=== PATIENT | female | born 1995 | race Caucasian/White ===

== ENCOUNTER 2016-12-08 01:33 | Emergency (ER) | payer BC ==
[~2016-12-08] VITALS: Ht 165.1 cm; Wt 72.8 kg
[~2016-12-08 01:33] MED LIST: BCPILLS PO
[2016-12-08 01:37] VITALS: BP 151/99; PULSE 104; TEMP 36.6; O2SAT 100; Ht 165.1 cm; Wt 72.8 kg
[2016-12-08] MEDS ORDERED: AMOXICILLIN 250 MG CAP PO STA (01:48)
[2016-12-08] MEDS ORDERED: TRAMADOL HCL 50 MG TAB PO STA (01:48)
[2016-12-08] MEDS ORDERED: AMOX500C3 PO (01:57)
[2016-12-08] MEDS ORDERED: TRAM-10 PO (01:57)
--- NOTE | 2016-12-08 02:00 | EMERGENCY ROOM VISIT NOTE ---
History First contact with patient: 01:42 Chief Complaint: DENTAL PAIN Stated Complaint: TOOTH, JAW PAIN Nursing Triage Summary: left sided dental pain/jaw pain History of Present Illness The patient is a 21 year old female who presents to the Emergency Room with complaints of dental pain for the past few days who has cavities and has not scheduled an appointment yet to have them fixed. She saw the dentist last week. She ent pain as aching, ranging in severity 6 out of 10 to the left upper jaw line. She tried Motrin without relief of symptoms. Patient denies chest pain, dyspnea, fever, chills, facial pain, dysphagia, neck pain, neck status, lightheadedness or dizziness. No other complaints per patient. Review of Systems See HPI for pertinent positives & negatives. A total of 10 systems reviewed and were otherwise negative. Past Medical/Surgical History None Social History Smoking Status: Never Smoker Drug Use: none Marital Status: in relationship Current/Historical Medications Scheduled Amoxicillin (Amoxil), 500 MG PO TID Control Pills ( Control Pills), 1 TAB PO DAILY Scheduled PRN Tramadol (Ultram), 1-2 TAB PO Q4H PRN for Pain Allergies Coded Allergies: No Known Allergies (Unverified Allergy, Mild, 09/27/06) Physical Exam Vital Signs Date Time Temp Pulse Resp B/P Pulse Ox O2 Delivery O2 Flow Rate FiO2 12/08/16 01:37 36.6 104 18 151/99 100 Room Air Physical Exam VITALS: Vitals are noted on the nurse's note and reviewed by myself. Vital signs stable. GENERAL: Pleasant female, in no acute distress, nondiaphoretic, well-developed well-nourished. SKIN: The skin was without rashes, erythema, edema, or bruising. There is no tenting of the skin. Capillary reflex less than 2 seconds. HEAD: Normocephalic atraumatic. EARS: External auditory canals clear, tympanic membranes pearly limon without erythema or effusion bilaterally. EYES: Pupils equal round and reactive to light and accommodation. Conjunctivae without injection, sclerae without icterus. Extraocular movements intact. NOSE: Patent, turbinates without inflammation or discharge. No sinus tenderness. MOUTH: Mucous membranes moist. Pharynx without erythema or exudate. Uvula midline. Airway patent. Tongue does not deviate. Dental exam: No loose or chipped teeth, dental decay to left upper molar with no palpable abscess. No signs of Mike angina. NECK: Supple without nuchal rigidity. No lymphadenopathy. No thyromegaly. Cervical spine is nontender. No JVD. No meningeal signs HEART: Regular rate and rhythm without murmurs gallops or rubs. LUNGS: Clear to auscultation bilaterally without wheezes, rales or rhonchi. No dullness to percussion. No retractions or accessory muscle use. ABDOMEN: Positive bowel sounds x 4. Normal tympanic percussion. Soft, nontender, without masses or organomegaly. Spann sign negative. No guarding or rebound tenderness. MUSCULOSKELETAL: No muscle atrophy, erythema, or edema noted. NEURO: Patient was alert and oriented to person place and time. Normal sensation to light and sharp touch. No focal neurological deficits. Medical Decision & Procedures Medications Administered Medications (Trade) Dose Ordered Sig/Tracy Route Start Time Stop Time Status Last Admin Dose Admin Amoxicillin (Amoxil Cap) 500 mg NOW STAT PO 12/08/16 01:48 12/08/16 01:49 DC 12/08/16 01:53 500 MG Tramadol HCl (Ultram Tab) 50 mg ONE STAT PO 12/08/16 01:48 12/08/16 01:49 DC 12/08/16 01:53 50 MG ED Course Prior records reviewed and summarized as above. Triage Nursing notes reviewed. Additional history obtained from boyfriend. The patient's history was concerning for dental pain. Differential diagnosis: Etiologies such as cellulitis, abscess, gingivitis, cavity, Mike angina as well as others were entertained.. Physical examination: The physical examination was consistent with dental pain from dental cavity ER treatment provided: Amoxicillin, Ultram On reassessment the patient felt better. Diagnostics interpreted by me: Deferred This appears to be isolated dental pain and dental caries. Patient had no palpable abscess. No signs of airway compromise. No signs of Mike angina. She was counseled on Proper Dental Hygiene and Advised to See a Dentist As Soon As Possible for Definitive Care for Her Dental Problem or Here in the ER Sooner for Fevers, Facial Swelling, Difficulty Swallowing, Worsening Signs or Symptoms or As Needed.. By the evaluation outlined above emergent etiologies such as abscess, Mike angina, as well as others were deemed relatively unlikely. The pt informed about the findings as listed above. All questions were answered and pleased with the treatment. Return instructions were outlined and the patient was discharged in stable condition. Outpatient prescription management: amoxil, ultram Referral: The patient was referred back to dentistry for follow-up in 2 to 3 days for a recheck of the current condition. Medical Decision As above [place] Drug Monitoring Program Search Results: patient reviewed within database, no issues identified Impression Primary Impression: Dental caries Additional Impression: Tooth pain with chewing Departure Information Dispostion Home / Self-Care Condition GOOD Prescriptions Tramadol (Ultram) 50 Mg Tab 1-2 TAB PO Q4H Y for Pain, #14 TAB For Initial Treatment Prov: Dinah Obando .SOHAIL 12/08/16 Amoxicillin (AMOXIL) 500 Mg Cap 500 MG PO TID for 10 Days, #30 CAP Prov: Dinah Obando PA-C 12/08/16 Referrals No Doctor, Assigned (PCP) Forms HOME CARE DOCUMENTATION FORM, IMPORTANT VISIT INFORMATION Patient Instructions [facility], ED [facility] Additional Instructions Amoxicillin 500mg: Take one pill 3 times daily for 10 days for your infection. All antibiotics can cause diarrhea. If this occurs and you feel worse or it does not resolve in 1-2 days follow up with your doctor or return to the Emergency Department as this could be signs of serious underlying problems. Any medication can cause an allergic reaction, stop the pills immediately and return to the ER for rash, hives, breathing difficulties, or swelling. Ultram 50 mg: Take 1-2 pills every four hours for breakthrough pain. Avoid alcohol, operating machinery or dangerous equipment, working on ladders or roofs , DRIVING, or situations where being under the influence may be dangerous. It is recommended to use an wpnd-bns-pbkhxzz stool softener such as Colace, 100mg twice daily while taking this medication to avoid constipation. Ibuprofen(Motrin, Advil) may be used for fever or pain. Use 600mg every six hours as needed. Take with food. Avoid using more than 2400mg in a 24 hour period. Do not use 2400mg per day for more than three consecutive days without physician direction. Prolonged inappropriate use can lead to stomach upset or ulcers. This medication can be taken if you need to drive, work, or perform activities which may be dangerous when taking narcotic pain medication. (AND/OR) Acetaminophen(Tylenol) may be used for fever or pain. Use 1000mg every six hours as needed. Avoid using more than 3000mg in a 24 hour period. This medication can be taken if you need to drive, work, or perform activities which may be dangerous when taking narcotic pain medication. [place] teeth twice a day, floss daily and do warm saltwater gargles 3 times a day. See a dentist as soon as possible for definitive care for your dental problem. Return to ER sooner for facial swelling, fever, redness, worsening signs or symptoms or as needed. Problem Qualifiers
== END 2016-12-08 02:07 | disposition home or self-care (01) ==
LOC: C.EDB 01:34
DX: K02.9 Dental caries, unspecified (principal); K08.89 Other specified disorders of teeth and supporting structures

== ENCOUNTER 2020-11-20 05:32 | Inpatient (IN) ==
[2020-11-20] MEDS ORDERED: CITRIC ACID/SODIUM CITRATE 15 ML UDC PO SCH (06:00)
[2020-11-20] MEDS ORDERED: LACTATED RINGER'S 1,000 ML IV SCH ×2 (06:00→08:45)
[2020-11-20] MEDS ORDERED: ceFAZolin 2,000 MG in SYRINGE 0 ML IV SCH (06:00)
[2020-11-20 06:45] LABS: Hematocrit (blood only) 34.9 % (37-47); Hemoglobin 11.9 g/dL (12.0-16.0); Mean Corpuscular Hemoglobin 31.2 pg (25-34); Mean Corpuscular Hgb Conc 34.1 g/dL (32-36); Mean Corpuscular Volume 91.4 fL (80-100); RDW Coefficient of Variation 13.2 % (11.5-14.5); RDW Standard Deviation 43.4 fL (36.4-46.3); Red Blood Count 3.82 M/uL (4.2-5.4); White Blood Count 7.79 K/uL (4.8-10.8)
--- NOTE | 2020-11-20 06:59 | Anesthesiology Consultation ---
Date of Service November 20, 2020 Assessment & Plan (1) Encounter for pre-operative examination: Chart Review Chart Review: Acceptable Risk for Surgery Consults Requested none ASA ASA2 Proposed Anesthesia Anesthesia Type: Spinal Risk / Benefits Reviewed With: PT / POA / Parent / Guardian, Accepts Plan and Informed Consent Obtained History Surgery Operation Date: 11/20/20 07:30 Proposed Procedures p Section - Lorenzo Pak MD Height/Weight Height: 5 ft 4 in Weight: 76.204 kg Allergies Allergy/AdvReac Type Severity Reaction Status Date / Time No Known Allergies Allergy Mild Verified 11/17/20 09:11 Medications Home Medications Medication Instructions Recorded Confirmed Last Taken prenat.vits,jason,ahk-kvta-xxriv 1 tab PO DAILY 04/10/20 11/20/20 11/19/20 08:00 Past Medical History Medical History Need for rhogam due to Rh negative mother Spontaneous hx Exercise / Class Metabolic Activity II 4-5 Yardwork/Stairs/Walk up hill Past Family History Family History Grandmother (Paternal) Breast cancer Diabetes Brother Cancer lymphoma Grandmother (Maternal) Heart disease Father Hypertension Past Surgical History Surgical History History of wisdom tooth extraction Status post surgery Hymenectomy 2007? Past Anesthesia History No Hx of Anesthesia Complications and No Family Hx of Anesthesia Complications History of PONV No Hx of PONV and No Hx of Motion Sickness Social History Smoking Status: Never smoker Do You Dip or Chew Tobacco: No Hx Alcohol Use: No Hx Substance Use: No substance use type: does not use Physical Exam Vital Signs Last Vital Signs Temp 98.1 F 11/20/20 05:44 Pulse 88 11/20/20 05:44 Resp 20 11/20/20 05:44 BP 136/85 11/20/20 05:44 ENMT Mouth: no dentition abnormality Thyromental Distance: > or= 3.5 Finger Breadths Mallampati Class: II Neck normal visual inspection Respiratory normal respiratory effort Auscultation: lungs clear to auscultation bilaterally Cardiovascular Rate/Rhythm: regular rate and regular rhythm Testing Laboratory Results 11/20/20 06:14
[2020-11-20] MEDS ORDERED: fentaNYL citrate 100 MCG/2 ML VIAL ONE (07:02)
[2020-11-20] MEDS ORDERED: MoRPHine SULFATE PF 1 MG/ML 10 ML AMP/VIAL ONE (07:02)
[2020-11-20] MEDS ORDERED: OXYTOCIN 10 UNITS/ML VIAL ONE ×2 (07:02→08:09)
[2020-11-20 07:04] LABS: Basophils # (auto) 0.02 K/uL (0-0.2); Basophils % (auto) 0.3 %; Eosinophils # (auto) 0.04 K/uL (0-0.5); Eosinophils % (auto) 0.5 %; Immature Granulocytes # (auto) 0.07 K/uL (0.00-0.02); Immature Granulocytes % (auto) 0.9 %; Lymphocytes # (auto) 1.59 K/uL (1.2-3.4); Lymphocytes % (auto) 20.4 %; Monocytes # (auto) 0.59 K/uL (0.11-0.59); Monocytes % (auto) 7.6 %; Neutrophils # (auto) 5.48 K/uL (1.4-6.5); Neutrophils % (auto) 70.3 %; Platelet Count 119 K/uL (130-400); Platelet Estimate Decreased (Normal)
--- NOTE | 2020-11-20 07:17 | History & Physical Report ---
Date of Service November 20, 2020 Assessment & Plan (1) Encounter for pre-operative examination: 25yo at 39.4 weeks GA. LTCS for persistent breech. Declining ECV. 1. Fetus: Cat 1 2. Delivery planned by LTCS 3. Vitals: WNL 4. Rh negative: Rh protocol post (2) Need for rhogam due to Rh negative mother: (3) Breech presentation: Admission and Anticipated Discharge Date Admission Date: November 20, 2020 History of Present Illness Primary Care Provider: NO PCP 25yo at 39.4 weeks GA. Presents for scheduled LTCS for persistent breech presentation. otherwise complicated by Rh negative. OB Labs: Blood Type A Negative 04/18/20 Antibody Screen NEGATIVE 04/18/20 Hemoglobin 12.8 g/dL (12.0-16.0) 04/18/20 Hematocrit 36.3 % (37-47) L 04/18/20 Mean Corpuscular Volume 86.8 fL (80-100) 04/18/20 Platelet Count 204 K/uL (130-400) 04/18/20 Rubella IgG Antibody Immune (Immune) 04/18/20 Rapid Plasma Reagin Nonreactive (Nonreactive) 04/18/20 Hepatitis B Surface Antigen Neg (Neg) 04/18/20 HIV (1&2) Ab and P24 Ag, 4th Gener Neg (Neg) 04/18/20 Glucose 1 Hour 50 gm Load 75 mg/dl (70-130) 06/14/20 OB Optional Labs: Chlamydia trachomatis RNA NOT DETECTED (NOT DETECTED) 04/18/20 Neisseria gonorrhoeae RNA NOT DETECTED (NOT DETECTED) 04/18/20 Allergies Allergy/AdvReac Type Severity Reaction Status Date / Time No Known Allergies Allergy Mild Verified 11/17/20 09:11 Home Medications Medication Instructions Recorded Confirmed Type prenat.vits,jason,sxn-irib-osrtr 1 tab PO DAILY 04/10/20 11/20/20 History Patient History Medical History Need for rhogam due to Rh negative mother Spontaneous hx Surgical History History of wisdom tooth extraction Status post surgery Hymenectomy 2007? Family History Grandmother (Paternal) Breast cancer Diabetes Brother Cancer lymphoma Grandmother (Maternal) Heart disease Father Hypertension Social History Smoking Status: Never smoker Second Hand Exposure: No; Do You Dip or Chew Tobacco: No; Tobacco Cessation Education Requested by Patient: No Hx Alcohol Use: No Hx Substance Use: No Preferred Language: Bermudian Communication Ability: Effective Mix House Operator Required: No Beliefs That Will Affect Care: None marital status: marital status details: Av Zamora (25) [phone] Current Living Situation: Spouse Current Living Situation Comment: lives with spouse, 2 dogs current occupational status: employed current occupation: [employer] Other Information That Helps Us Care for You: No Feels Safe at Home: Yes Safety Concerns: Feels Safe At This Time Assistive Devices: Contacts and Glasses Physical Exam Constitutional: WD/WN, vitals as above Respiratory: normal respiratory effort, lungs clear to auscultation Cardiovascular: RRR, no murmur, no edema Gastrointestinal (Abdomen): Inspection/Auscultation: abdomen normal to inspection Percussion/Palpation: abdomen soft; abdomen nontender, no guarding and abdomen not rigid Genitourinary: OB Exam Abdomen: + breech (by BSUS) Results & Data ([facility]) Vital Signs (Past 12 Hours) Vital Signs Temp Pulse Resp BP 11/20/20 07:03 36.9 C 89 16 140/97 11/20/20 06:59 89 140/97 11/20/20 05:44 36.7 C 88 20 136/85 Coding Level of Care Code None Diagnoses Encounter for pre-operative examination Z01.818 Need for rhogam due to Rh negative mother Z29.13 Breech presentation O32.1XX0
[2020-11-20] MEDS ORDERED: ONDANSETRON INJ 2 MG/ML 2 ML VIAL ONE (07:34)
[2020-11-20] MEDS ORDERED: NALOXONE HCL 1 MG in SODIUM CHLORIDE 0.9% 1000ML 1,000 ML IV PRN (07:46)
[2020-11-20] MEDS ORDERED: diphenhydrAMINE 50 MG/ML VIAL IV PRN (07:46)
[2020-11-20] MEDS ORDERED: NALOXONE HCL 0.08 MG in SYRINGE 1.8 ML IV PRN (07:46)
[2020-11-20] MEDS ORDERED: ePHEDrine sulfate 50 MG/ML AMP IV PRN (07:46)
[2020-11-20] MEDS ORDERED: MEPERIDINE HCL 25 MG/ML CARP/VIAL IV PRN (07:46)
[2020-11-20] MEDS ORDERED: LACTATED RINGER'S 500 ML IV PRN (07:46)
[2020-11-20] MEDS ORDERED: ONDANSETRON INJ 2 MG/ML 2 ML VIAL IV PRN (07:46)
[2020-11-20] MEDS ORDERED: NALOXONE HCL 0.4 MG/1 ML VIAL/CARP IV PRN (07:46)
[2020-11-20] MEDS ORDERED: MoRPHine SULFATE PF 1 MG/ML 10 ML AMP/VIAL INT SPINAL ONE (07:46)
[2020-11-20] MEDS ORDERED: SODIUM CHLORIDE 0.9% 1000ML 1,000 ML IV SCH (08:00)
[2020-11-20] MEDS ORDERED: NO NARCOTICS OR SEDATIVES SCH (08:00)
--- NOTE | 2020-11-20 08:35 | Post Operative Brief Note ---
PG Immediate Post Op with CF Date of Surgery November 20, 2020 Pre & Post Diagnosis Operation Date: 11/20/20 07:30 Pre-Op Diagnosis: Breech Presentation Post-Op Diagnosis: Same; Delivery of a live male child at 0755 I identified the patient and participated in the time-out.: Yes Procedure Operation Date: 11/20/20 07:30 Actual Procedures p Section - Lorenzo Pak MD Surgeon Lorenzo Pak MD Nursing Teacher Dr Larsen Estimated Blood Loss 600 Findings Consistent with Post-Op Diagnosis Specimens Specimen Description: A. Placenta-hold B. Cord Blood Drains [place] Catheter
[2020-11-20] MEDS ORDERED: DIPHTHERIA/TETANUS/PERTUSSIS 0.5 ML SYR/VIAL IM ONE (08:36)
[2020-11-20] MEDS ORDERED: HYDROCORTISONE ACETATE 25 MG SUPP PR PRN (08:36)
[2020-11-20] MEDS ORDERED: SUPERCREAM 0.870% 15 GM JAR EXT PRN (08:36)
[2020-11-20] MEDS ORDERED: MAGNESIUM HYDROXIDE SUSP 30 ML UDC PO PRN (08:36)
[2020-11-20] MEDS ORDERED: SENNA 8.6 MG TAB PO PRN (08:36)
[2020-11-20] MEDS ORDERED: BENZOCAINE 20% AER SPR 82.5 GM CAN EXT PRN (08:36)
--- NOTE | 2020-11-20 09:35 | Anesthesiology Progress Note ---
Date of Service November 20, 2020 Anesthesia Post Procedure Vital Signs Vital Signs: Temp Pulse Resp BP Pulse Ox 11/20/20 09:33 67 97 11/20/20 09:31 62 113/74 11/20/20 09:28 66 98 11/20/20 09:23 72 98 11/20/20 09:21 65 115/71 11/20/20 09:18 70 98 11/20/20 09:13 62 98 11/20/20 09:11 70 109/64 11/20/20 09:08 66 97 11/20/20 09:03 65 97 11/20/20 09:01 72 113/61 11/20/20 08:58 70 98 11/20/20 08:53 68 98 11/20/20 08:52 70 116/66 11/20/20 08:48 73 97 11/20/20 08:44 65 113/65 11/20/20 08:43 64 97 11/20/20 07:03 98.4 F 89 16 140/97 11/20/20 06:59 89 140/97 11/20/20 05:44 98.1 F 88 20 136/85 Transfer of Care Handoff Completed per policy Notes Mental Status: alert / awake / arousable and participated in evaluation Nausea / Vomiting: adequately controlled Pain: adequately controlled Airway Patency, RR, SpO2: stable & adequate BP & HR: stable & adequate Hydration State: stable & adequate Neuraxial Anesthesia: was administered and sensory block is resolving Anesthetic Complications: no major complications apparent and Pt Satisfied with anesthetic care
--- NOTE | 2020-11-20 10:22 | Operative Report (OR) ---
DATE OF OPERATION: 11/20/2020 PROCEDURE: Primary low transverse section. SURGEON: Lorenzo Pak MD. STAVE LOG RIPSAW OPERATOR: Paige Larsen MD. PREOPERATIVE DIAGNOSES: 1. Single intrauterine at 39 weeks 4 days gestational age. 2. Persistent breech presentation. 3. Rh negative. POSTOPERATIVE DIAGNOSES: 1. Single intrauterine at 39 weeks 4 days gestational age. 2. Persistent breech presentation. 3. Rh negative. 4. Status post procedure. ESTIMATED BLOOD LOSS: 600 mL DRAINS: [place] catheter. FLUIDS: Continuous lactated ringer. URINE OUTPUT: Via [place] catheter. COMPLICATIONS: None. FINDINGS: Viable with weight and Apgars pending. INDICATIONS: The patient is a 25-year-old G1, P0, at 39 weeks 4 days gestational age, presented today for scheduled primary section secondary to persistent breech presentation. The patient has been previously counseled on options for persistent breech including an external cephalic version versus a primary section. The patient declined. The external cephalic version and opted to proceed with a primary . Consents were reviewed and signed in clinic last week. DESCRIPTION OF PROCEDURE: The patient was taken to the operating room after consents were ensured. Upon presentation, she was properly identified. Spinal anesthesia was obtained without difficulty. The patient was prepped and draped in normal sterile fashion. A preprocedural timeout was performed. A Pfannenstiel incision was then made with a knife. This was carried down to underlying fascia with the Bovie. The fascia was nicked at the midline with a knife and was extended laterally in each direction with Mayos and pickups. The superior aspect of the fascia was then grasped with Kochers x2 and elevated off the underlying rectus muscle using blunt dissection and the inferior aspect of the fascia was grasped with Kochers x2, elevated off the underlying rectus muscles using blunt dissection. A midline was then entered bluntly and placed on stretch to provide adequate room for delivery. A bladder blade was inserted and a bladder flap was created in normal fashion. A low transverse uterine incision was then made with a knife. The was noted to be in elma breech presentation and was delivered through the hysterotomy without difficulty. The was noted to be vigorous upon delivery and the cord was double clamped and cut. was delivered and taken to the awaiting nursery staff and segment cord blood were obtained. Attention was then turned to deliver the placenta, which delivered intact, 3-vessel cord, gentle cord traction. The uterus was then exteriorized and several passes were made, was wrapped in a wet lap and several passes were made to remove any remaining membranes with a dry lap. The hysterotomy was then reapproximated with 0 Vicryl in a continuous running locked stitch. A second imbricating layer was then performed. The posterior cul-de-sac was cleaned of clots and debris. The uterus was returned to the maternal abdomen. Right and left pericolic gutters were cleaned of clots and debris. On inspection of the hysterotomy there was noted to be a couple small areas of bleeding and [id number] stitch was used x2 to achieve hemostasis. The space of Retzius subcutaneous and muscle layers were all inspected and noted to be hemostatic. The fascia was reapproximated with 0 Vicryl in a continuous running stitch. The subcutaneous layer was reapproximated with a 2-0 plain in continuous running stitch with care to reapproximate the Yael's fascia. The skin was reapproximated with 3-0 Vicryl on a Aubrey needle. Dermabond was placed on top. Needle, sponge and instrument counts were correct at the completion of the case. Both mother and were stable in the immediate post-delivery period. I attest to the content of the Intraoperative Record and any orders documented therein. Any exceptions are noted below. AMAIRANID
[2020-11-20] MEDS: KETOROLAC 30 MG/ML VIAL IV PRN ×2 (10:43→18:39)
[2020-11-20] MEDS: OXYTOCIN 20 UNITS in LACTATED RINGER'S 1,000 ML IV SCH ×2 (10:48→15:38)
[2020-11-20] MEDS: SIMETHICONE 80 MG CHEW PO SCH ×3 (17:24→20:48)
[2020-11-20] MEDS: DOCUSATE SODIUM 100 MG CAP PO SCH (20:48)
[2020-11-21] MEDS: KETOROLAC 30 MG/ML VIAL IV PRN (01:27)
[2020-11-21] MEDS ORDERED: DC INTRASPINAL MORPHINE ONE (01:46)
[2020-11-21] MEDS ORDERED: PROMETHAZINE HCL 25 MG in SODIUM CHLORIDE 0.9% 50 ML IV PRN (01:47)
[2020-11-21] MEDS ORDERED: ONDANSETRON INJ 2 MG/ML 2 ML VIAL IV PRN (01:47)
[2020-11-21] MEDS ORDERED: KETOROLAC 30 MG/ML VIAL IV PRN (01:47)
[2020-11-21] MEDS ORDERED: diphenhydrAMINE Capsule 25 MG CAP PO PRN (01:47)
[2020-11-21] MEDS ORDERED: diphenhydrAMINE 50 MG/ML VIAL IV PRN (01:47)
[2020-11-21] MEDS: oxyCODONE/ACETAMINOPHEN 5mg/325mg TAB PO PRN ×4 (06:07→20:37)
[2020-11-21 06:47] LABS: Basophils # (auto) 0.02 K/uL (0-0.2); Basophils % (auto) 0.2 %; Eosinophils # (auto) 0.04 K/uL (0-0.5); Eosinophils % (auto) 0.4 %; Hematocrit (blood only) 31.9 % (37-47); Immature Granulocytes # (auto) 0.03 K/uL (0.00-0.02); Immature Granulocytes % (auto) 0.3 %; Lymphocytes % (auto) 13.9 %; Mean Corpuscular Hemoglobin 31.4 pg (25-34); Mean Corpuscular Hgb Conc 34.5 g/dL (32-36); Mean Corpuscular Volume 91.1 fL (80-100); Mean Platelet Volume 11.9 fL (7.4-10.4); Monocytes # (auto) 0.43 K/uL (0.11-0.59); Monocytes % (auto) 4.3 %; Neutrophils # (auto) 8.13 K/uL (1.4-6.5); Neutrophils % (auto) 80.9 %; Platelet Count 113 K/uL (130-400); RDW Coefficient of Variation 13.3 % (11.5-14.5); RDW Standard Deviation 43.6 fL (36.4-46.3); White Blood Count 10.05 K/uL (4.8-10.8)
--- NOTE | 2020-11-21 07:00 | Obstetrical Progress Note ---
Date of Service <William Giordano MD - Last Filed: 11/21/20 07:35> November 21, 2020 Assessment & Plan <William Giordano MD - Last Filed: 11/21/20 07:35> (1) : A/P: Arelis Zamora is a 25 y/o female on POD#1 s/p delivery at 39+4 weeks. * Patient feels well today; eating well, voiding well, ambulating well * Pain well-controlled with oxycodone/acetaminophen 2 tabs q4h prn * PNL: Rh neg, RI, GBS neg, COVID neg * Baby is Rh neg - further rhogam not indicated * Routine postcesarean care: OOB, ambulation, diet progression as tolerated * After discharge, will have six-week follow-up with Dr. Pak Subjective <William Giordano MD - Last Filed: 11/21/20 07:35> Arelis Zamora is a 25 y/o female on POD#1 s/p delivery at 39+4 weeks. She reports feeling well overall this morning. Mild abdominal cramping and 3/10 pain well managed on analgesics. Has not voided yet - draper was removed one hour ago. Tolerating meals overnight without difficulty. Patient has been able to ambulate some. + passing gas and no bowel movement. Has persistent lochia with some improvement this morning. Currently . Review of Systems Denies fever or chills. Denies shortness of breath or cough. Denies chest pain. Denies breast pain. Denies dysuria. Denies leg pain or leg swelling. Denies headache or changes in vision. Physical Exam <William Giordano MD - Last Filed: 11/21/20 07:35> General: alert, oriented, no acute distress Cardiac: regular rate and rhythm, no murmurs appreciated Respiratory: lungs clear to auscultation bilaterally a/p, no wheezes/rales/rhonchi, no increased work of breathing, symmetrical chest rise, no respiratory distress Abdomen: soft, minimally tender, nondistended, bowel sounds present, surgical incision clean, dry, and intact, dermabond overlying incision Uterus: uterine fundus firm, palpable 4 cm below umbilicus Lower extremities: no lower extremity edema or swelling, no deep calf pain, Ulises's negative bilaterally Results & Data ([facility]) <William Giordano MD - Last Filed: 11/21/20 07:35> Vital Signs (Past 12 Hours) Vital Signs Temp Pulse Resp BP Pulse Ox 11/21/20 04:02 36.5 C 80 18 97 11/21/20 01:30 36.2 C L 73 18 124/83 97 11/21/20 01:00 18 98 11/21/20 00:00 18 95 11/20/20 23:00 18 97 11/20/20 22:00 18 96 11/20/20 21:00 18 98 11/20/20 20:06 18 98 11/20/20 20:05 36.6 C 80 18 126/88 98 <Lorenzo Pak MD - Last Filed: 11/21/20 07:52> Co-Signing Physician Notes Patient seen and evaluated and agree with the above findings and plan. Routine post care. Resident Activity Tracking <William Giordano MD - Last Filed: 11/21/20 07:35> Resident Involvement: Resident Care Provided Care Provided: OB Delivery
[2020-11-21] MEDS: SIMETHICONE 80 MG CHEW PO SCH ×4 (07:30→20:38)
[2020-11-21] MEDS: IBUPROFEN 600 MG TAB PO PRN ×4 (07:30→20:37)
[2020-11-21] MEDS: DOCUSATE SODIUM 100 MG CAP PO SCH ×2 (07:30→20:38)
[2020-11-21] MEDS: FERROUS SULFATE 325 MG TAB PO SCH (07:30)
[2020-11-21] MEDS: PRENATAL VITAMIN 1 TAB PO SCH (07:30)
[2020-11-21] MEDS ORDERED: bisacodyL 5 MG TABEC PO SCH (20:00)
[2020-11-22] MEDS: oxyCODONE/ACETAMINOPHEN 5mg/325mg TAB PO PRN ×4 (00:52→13:13)
[2020-11-22] MEDS: IBUPROFEN 600 MG TAB PO PRN ×4 (00:52→13:13)
--- NOTE | 2020-11-22 06:14 | Obstetrical Progress Note ---
Date of Service <William Giordano MD - Last Filed: 11/22/20 07:14> November 22, 2020 Assessment & Plan <William Giordano MD - Last Filed: 11/22/20 07:14> (1) : A/P: Arelis Zamora is a 25 y/o female on POD#2 s/p delivery at 39+4 weeks. * Patient feels well today; eating well, voiding well, ambulating well * Pain well-controlled with oxycodone/acetaminophen 2 tabs q4h prn * PNL: Rh neg, RI, GBS neg, COVID neg * Baby is Rh neg - further rhogam not indicated * Routine postcesarean care: OOB, ambulation, diet progression as tolerated * After discharge, will have six-week follow-up with Dr. Pak Subjective <William Giordano MD - Last Filed: 11/22/20 07:14> Arelis Zamora is a 25 y/o female on POD#2 s/p delivery at 39+4 weeks. She reports feeling well overall this morning. Mild abdominal cramping and 3/10 pain well managed on analgesics. Voiding well. Tolerating meals overnight without difficulty. Patient has been able to ambulate some. + passing gas and no bowel movement. Has persistent lochia with some improvement this morning. Currently . Review of Systems Denies fever or chills. Denies shortness of breath or cough. Denies chest pain. Denies breast pain. Denies dysuria. Denies leg pain or leg swelling. Denies headache or changes in vision. Physical Exam <William Giordano MD - Last Filed: 11/22/20 07:14> General: alert, oriented, no acute distress Cardiac: regular rate and rhythm, no murmurs appreciated Respiratory: lungs clear to auscultation bilaterally a/p, no wheezes/rales/rhonchi, no increased work of breathing, symmetrical chest rise, no respiratory distress Abdomen: soft, minimally tender, nondistended, bowel sounds present, surgical incision clean, dry, and intact, dermabond overlying incision Uterus: uterine fundus firm, palpable 4 cm below umbilicus Lower extremities: no lower extremity edema or swelling, no deep calf pain, Ulises's negative bilaterally Results & Data ([facility]) <William Giordano MD - Last Filed: 11/22/20 07:14> Vital Signs (Past 12 Hours) Vital Signs Temp Pulse Resp BP Pulse Ox 11/21/20 23:40 36.6 C 87 18 135/85 97 11/21/20 20:05 36.7 C 74 18 130/83 98 <Franca Boyce DO - Last Filed: 11/22/20 07:21> Co-Signing Physician Notes Resident Physician Supervision Note: I was present with Dr. Ball during the history and exam. I discussed the case with the resident and agree with the findings and plan as documented in the note. Any exceptions or clarifications are listed here: POD#2, DC home today. Rx sent. Documented By: Franca Boyce DO Resident Activity Tracking <William Giordano MD - Last Filed: 11/22/20 07:14> Resident Involvement: Resident Care Provided Care Provided: OB Delivery
[2020-11-22 06:18] LABS: Hematocrit (blood only) 30.8 % (37-47); Hemoglobin 10.4 g/dL (12.0-16.0)
--- NOTE | 2020-11-22 08:21 | Anesthesiology Progress Note ---
Date of Service November 22, 2020 Anesthesia Post Procedure Vital Signs Vital Signs: Temp Pulse Resp BP Pulse Ox 11/21/20 23:40 36.6 C 87 18 135/85 97 11/21/20 20:05 36.7 C 74 18 130/83 98 11/21/20 15:59 36.7 C 74 18 139/91 97 Pain Intensity Lower Medial Abdomen: Pain Intensity: 2 Other: Pain Intensity: 2 Transfer of Care Handoff Completed per policy Notes Mental Status: alert / awake / arousable and participated in evaluation Nausea / Vomiting: adequately controlled Pain: adequately controlled Airway Patency, RR, SpO2: stable & adequate BP & HR: stable & adequate Hydration State: stable & adequate Neuraxial Anesthesia: was administered and sensory block resolved Anesthetic Complications: no major complications apparent and Pt Satisfied with anesthetic care Notes: Patient denies headache this morning. Has been up walking without weakness or residual numbness. Patient encouraged to contact anesthesia for any concerns or new headache
[2020-11-22] MEDS ORDERED: bisacodyL 10 MG SUPP PR PRN (08:36)
[2020-11-22] MEDS: FERROUS SULFATE 325 MG TAB PO SCH (08:50)
[2020-11-22] MEDS: SIMETHICONE 80 MG CHEW PO SCH (08:50)
[2020-11-22] MEDS: PRENATAL VITAMIN 1 TAB PO SCH (08:50)
[2020-11-22] MEDS: DOCUSATE SODIUM 100 MG CAP PO SCH (08:50)
--- NOTE | 2020-11-30 12:35 | Discharge Summary (DS) ---
HOSPITAL COURSE: The patient was admitted for scheduled primary low transverse section secondary to breech presentation. Procedure was performed without difficulty or complication. The patient remained in house until day 2 for recovery and monitoring. At that time, the patient was meeting all postoperative goals and requested discharge. The patient was discharged in stable condition and was provided both written and verbal discharge instructions.
== END 2020-11-22 14:00 | disposition home or self-care (01) | DRG 788 ==
LOC: 4S1 05:32 → EDSTATUS 07:30 → 4S2 11:00
DX: O32.1XX0 Maternal care for breech presentation, not applicable or unspecified; Z67.11 Type A blood, Rh negative; Z37.0 Single live birth; Z3A.39 39 weeks gestation of pregnancy

== ENCOUNTER 2020-11-27 05:53 | Inpatient (IN) ==
[2020-11-27] MEDS ORDERED: MAG SULFATE 4GM BOLUS FROM BAG IV ONE (06:16)
[2020-11-27] MEDS: LACTATED RINGER'S 1,000 ML IV PRN ×2 (06:35→19:36)
[2020-11-27] MEDS: MAGNESIUM SULFATE / WTR 40 GM/1,000 ML BAG IV SCH ×2 (06:39→23:01)
--- NOTE | 2020-11-27 06:48 | History & Physical Report ---
Date of Service November 27, 2020 Assessment & Plan (1) Pre-eclampsia, : -Blood pressure here on labor and delivery 137/92. -Patient still with a mild headache. -PIH labs drawn in the emergency room within normal limits -COVID-19 negative -Only diagnosis at this point is preeclampsia -Explained diagnosis to patient and her -We will proceed with magnesium for 24 hours -Blood pressure medication as needed to keep systolic less than 160 and diastolic less than 105 -All questions answered of the patient History of Present Illness Chief Complaint: Elevated blood pressure Primary Care Provider: NO PCP The patient is a 25-year-old 2 para 1 AB 1, 1 week postop from primary section for breech presentation, who was admitted from the emergency room for an elevated blood pressure. The patient woke up at 003 0 hours this morning with what she described as crushing chest pain with headache. She went to the emergency room for evaluation. Evaluation for chest pain ruled out cardiac etiologies. The patient had a markedly elevated blood pressure with a diastolic in the 120s. Patient received labetalol IV which brought her blood pressure down to a diastolic of 90. The patient was then sent to labor and delivery for further evaluation. The patient's was a primary section for breech presentation. She had a couple of elevated blood pressures immediately postoperatively but was normotensive for the remainder of her stay. She had no problems with her blood pressure during her . Allergies Allergy/AdvReac Type Severity Reaction Status Date / Time No Known Allergies Allergy Mild Verified 11/27/20 06:14 Home Medications Medication Instructions Recorded Confirmed Type prenat.vits,jason,[id number] 1 tab PO DAILY 04/10/20 11/27/20 History Patient History Medical History Need for rhogam due to Rh negative mother Spontaneous hx Surgical History History of wisdom tooth extraction Status post surgery Hymenectomy 2007? 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 [employer] Other Information That Helps Us Care for You: No Feels Safe at Home: Yes Assistive Devices: Glasses Physical Exam Constitutional: WD/WN, vitals as above Respiratory: Auscultation: lungs clear to auscultation bilaterally Cardiovascular: RRR, no murmur, no edema Extremities: + edema (Trace); no calf tenderness Gastrointestinal (Abdomen): Inspection/Auscultation: + abdominal surgical scar (Pfannenstiel) Results & Data ([facility]) Vital Signs (Past 12 Hours) Vital Signs Temp Pulse Resp BP Pulse Ox 11/27/20 06:40 76 137/92 11/27/20 06:38 72 98 11/27/20 06:33 78 99 11/27/20 06:28 88 98 11/27/20 06:23 81 142/94 H 98 11/27/20 06:18 88 137/91 98 11/27/20 06:13 82 143/92 H 98 11/27/20 06:08 102 H 153/94 H 97 11/27/20 06:03 107 H 157/99 H 98 11/27/20 06:00 98.6 F 83 16 164/104 H 11/27/20 05:58 79 99 Code Status & VTE Plan VTE Prophylaxis Plan VTE Prophylaxis will be ordered: Yes Coding Level of Care Code 44484 Initial Inpt Care Lvl 3 Diagnoses Pre-eclampsia, O14.95
[2020-11-27] MEDS ORDERED: ACETAMINOPHEN 325 MG TAB ONE (10:42)
[2020-11-27 13:04] LABS: Basophils # (auto) 0.03 K/uL (0-0.2); Basophils % (auto) 0.3 %; Eosinophils % (auto) 1.2 %; Hematocrit (blood only) 35.9 % (37-47); Hemoglobin 12.2 g/dL (12.0-16.0); Immature Granulocytes # (auto) 0.05 K/uL (0.00-0.02); Immature Granulocytes % (auto) 0.6 %; Lymphocytes # (auto) 1.83 K/uL (1.2-3.4); Lymphocytes % (auto) 21.2 %; Mean Corpuscular Hemoglobin 31.1 pg (25-34); Mean Corpuscular Volume 91.6 fL (80-100); Mean Platelet Volume 10.2 fL (7.4-10.4); Monocytes # (auto) 0.46 K/uL (0.11-0.59); Monocytes % (auto) 5.3 %; Neutrophils # (auto) 6.18 K/uL (1.4-6.5); Neutrophils % (auto) 71.4 %; Platelet Count 216 K/uL (130-400); RDW Coefficient of Variation 12.9 % (11.5-14.5); RDW Standard Deviation 42.8 fL (36.4-46.3); Red Blood Count 3.92 M/uL (4.2-5.4); White Blood Count 8.65 K/uL (4.8-10.8)
[2020-11-27 13:37] LABS: Alanine Aminotransferase 42 U/L (12-78); Alkaline Phosphatase 113 U/L (45-117); Aspartate Aminotransferase 20 U/L (15-37); Bilirubin Direct < 0.1 mg/dl (0-0.2); Bilirubin,Total 0.4 mg/dl (0.2-1); Total Protein 6.8 gm/dl (6.4-8.2)
[2020-11-27] MEDS: ACETAMINOPHEN 325 MG TAB PO PRN ×2 (14:38→21:43)
[2020-11-27 19:27] LABS: Basophils # (auto) 0.03 K/uL (0-0.2); Basophils % (auto) 0.3 %; Eosinophils # (auto) 0.15 K/uL (0-0.5); Eosinophils % (auto) 1.7 %; Hemoglobin 12.3 g/dL (12.0-16.0); Immature Granulocytes # (auto) 0.03 K/uL (0.00-0.02); Immature Granulocytes % (auto) 0.3 %; Lymphocytes % (auto) 18.3 %; Mean Corpuscular Hgb Conc 35.1 g/dL (32-36); Mean Corpuscular Volume 91.1 fL (80-100); Mean Platelet Volume 10.2 fL (7.4-10.4); Monocytes # (auto) 0.39 K/uL (0.11-0.59); Monocytes % (auto) 4.5 %; Neutrophils # (auto) 6.54 K/uL (1.4-6.5); Neutrophils % (auto) 74.9 %; Platelet Count 219 K/uL (130-400); RDW Coefficient of Variation 12.8 % (11.5-14.5); RDW Standard Deviation 42.8 fL (36.4-46.3); Red Blood Count 3.84 M/uL (4.2-5.4); White Blood Count 8.74 K/uL (4.8-10.8)
--- NOTE | 2020-11-27 19:54 | Obstetrical Progress Note ---
Date of Service November 27, 2020 Assessment & Plan Admission and Anticipated Discharge Date Admission Date: November 27, 2020 Subjective Patient has a mild headache otherwise she is well she is still on magnesium sulfate her labs are normal following closely Results & Data ([facility]) Vital Signs (Past 12 Hours) Vital Signs Temp Pulse Resp BP Pulse Ox 11/27/20 19:45 79 98 11/27/20 19:40 78 99 11/27/20 19:35 89 98 11/27/20 19:31 76 124/77 11/27/20 19:30 78 98 11/27/20 19:25 75 98 11/27/20 19:20 81 98 11/27/20 19:15 88 99 11/27/20 19:10 84 98 11/27/20 19:05 81 98 11/27/20 19:00 97.9 F 77 18 99 11/27/20 18:55 85 97 11/27/20 18:50 89 98 11/27/20 18:45 82 98 11/27/20 18:40 87 98 11/27/20 18:35 85 99 11/27/20 18:30 16 11/27/20 18:25 82 141/89 H 97 11/27/20 18:20 84 97 11/27/20 18:15 95 H 98 11/27/20 18:10 91 H 138/88 97 11/27/20 18:05 77 98 11/27/20 18:01 16 11/27/20 18:00 92 H 18 97 11/27/20 17:55 76 134/80 97 11/27/20 17:50 76 97 11/27/20 17:45 74 97 11/27/20 17:40 72 18 129/80 97 11/27/20 17:35 74 97 11/27/20 17:30 75 97 11/27/20 17:25 74 131/85 97 11/27/20 17:20 74 97 11/27/20 17:15 76 97 11/27/20 17:10 73 138/87 97 11/27/20 17:05 74 96 11/27/20 17:00 75 18 97 11/27/20 16:55 74 136/85 98 11/27/20 16:50 79 97 11/27/20 16:45 79 97 11/27/20 16:40 76 140/87 98 11/27/20 16:35 81 98 11/27/20 16:30 86 98 11/27/20 16:25 86 138/88 97 11/27/20 16:20 91 H 97 11/27/20 16:15 90 98 11/27/20 16:11 91 H 152/99 H 11/27/20 16:10 90 98 11/27/20 16:05 92 H 98 11/27/20 16:00 92 H 16 99 11/27/20 15:55 81 141/91 H 98 11/27/20 15:50 88 99 11/27/20 15:45 86 98 11/27/20 15:40 95 H 146/95 H 98 11/27/20 15:35 87 98 11/27/20 15:30 87 98 11/27/20 15:25 80 147/93 H 98 11/27/20 15:20 85 99 11/27/20 15:15 90 99 11/27/20 15:10 97.5 F L 83 16 146/93 H 100 11/27/20 15:05 91 H 100 11/27/20 15:00 93 H 100 11/27/20 14:55 76 142/91 H 100 11/27/20 14:50 89 99 11/27/20 14:45 91 H 100 11/27/20 14:40 86 145/94 H 99 11/27/20 14:35 88 99 11/27/20 14:30 87 99 11/27/20 14:25 76 147/94 H 99 11/27/20 14:20 78 99 11/27/20 14:15 79 18 98 11/27/20 14:11 77 133/87 11/27/20 14:10 78 98 11/27/20 14:05 88 98 11/27/20 14:00 90 18 98 11/27/20 13:56 88 136/85 11/27/20 13:55 91 H 99 11/27/20 13:50 95 H 99 11/27/20 13:45 89 100 11/27/20 13:38 103 H 99 11/27/20 13:33 83 99 11/27/20 13:28 88 99 11/27/20 13:25 87 131/82 11/27/20 13:23 85 99 11/27/20 13:18 91 H 98 11/27/20 13:13 88 98 11/27/20 13:10 85 20 134/81 11/27/20 13:08 87 98 11/27/20 13:05 18 11/27/20 13:03 87 98 11/27/20 12:58 83 97 11/27/20 12:55 86 123/79 11/27/20 12:53 91 H 98 11/27/20 12:48 88 98 11/27/20 12:43 93 H 98 11/27/20 12:40 108 H 151/99 H 11/27/20 12:38 119 H 99 11/27/20 12:33 82 97 11/27/20 12:28 85 99 11/27/20 12:25 95 H 147/95 H 11/27/20 12:23 86 98 11/27/20 12:18 79 97 11/27/20 12:15 18 11/27/20 12:13 79 97 11/27/20 12:10 86 18 137/86 11/27/20 12:08 79 97 11/27/20 12:03 82 97 11/27/20 11:58 83 97 11/27/20 11:55 81 133/83 11/27/20 11:53 82 96 11/27/20 11:48 84 96 11/27/20 11:43 83 97 11/27/20 11:40 84 136/86 11/27/20 11:38 84 97 11/27/20 11:33 81 97 11/27/20 11:28 86 98 11/27/20 11:25 100 H 145/91 H 11/27/20 11:23 81 99 11/27/20 11:18 85 96 11/27/20 11:13 85 97 11/27/20 11:10 82 18 138/87 11/27/20 11:08 95 H 98 11/27/20 11:03 79 97 11/27/20 11:00 98.4 F 18 11/27/20 10:58 81 98 11/27/20 10:55 76 137/86 11/27/20 10:53 86 97 11/27/20 10:48 90 99 11/27/20 10:43 90 99 11/27/20 10:40 90 139/91 11/27/20 10:38 95 H 99 11/27/20 10:33 91 H 98 11/27/20 10:28 92 H 98 11/27/20 10:25 95 H 144/97 H 11/27/20 10:23 98 H 97 11/27/20 10:18 102 H 20 97 11/27/20 10:13 97 H 97 11/27/20 10:10 103 H 149/97 H 11/27/20 10:08 109 H 97 11/27/20 10:05 20 11/27/20 09:58 101 H 98 11/27/20 09:55 97 H 143/95 H 11/27/20 09:53 107 H 99 11/27/20 09:48 102 H 97 11/27/20 09:43 100 H 98 11/27/20 09:40 96 H 132/88 11/27/20 09:38 103 H 97 11/27/20 09:33 102 H 97 11/27/20 09:28 123 H 99 11/27/20 09:26 102 H 141/88 H 11/27/20 09:23 90 98 11/27/20 09:18 78 99 11/27/20 09:13 78 99 11/27/20 09:10 106 H 18 133/77 11/27/20 09:08 84 96 11/27/20 09:03 82 96 11/27/20 08:58 82 96 11/27/20 08:55 80 129/77 11/27/20 08:53 83 96 11/27/20 08:48 82 96 11/27/20 08:43 85 97 11/27/20 08:40 84 141/85 H 11/27/20 08:38 84 98 11/27/20 08:33 88 97 11/27/20 08:28 97 H 96 11/27/20 08:25 90 147/90 H 11/27/20 08:23 90 96 11/27/20 08:18 78 97 11/27/20 08:13 79 98 11/27/20 08:10 89 18 145/86 H 11/27/20 08:08 81 96 11/27/20 08:03 78 96 11/27/20 08:00 18 11/27/20 07:58 77 97 11/27/20 07:55 79 18 145/89 H 11/27/20 07:53 79 97 PG Care Time/CCT Total # of Minutes Spent Total Time Spent with Patient: Total time spent is greater than 50% in coordination of care (as documented) at patient's floor/unit and/or counseling patient: Coding Level of Care Code None
[2020-11-27 20:01] LABS: Albumin Level 2.9 gm/dl (3.4-5.0); Bilirubin Direct 0.1 mg/dl (0-0.2); Bilirubin,Total 0.5 mg/dl (0.2-1); Magnesium Therapeutic L&D Only 6.5 mg/dL (4.0-8.0); Total Protein 6.6 gm/dl (6.4-8.2)
[2020-11-28 00:39] LABS: Basophils # (auto) 0.04 K/uL (0-0.2); Basophils % (auto) 0.5 %; Eosinophils # (auto) 0.11 K/uL (0-0.5); Eosinophils % (auto) 1.4 %; Hematocrit (blood only) 34.7 % (37-47); Hemoglobin 12.1 g/dL (12.0-16.0); Immature Granulocytes # (auto) 0.04 K/uL (0.00-0.02); Immature Granulocytes % (auto) 0.5 %; Lymphocytes % (auto) 19.7 %; Mean Corpuscular Hemoglobin 31.7 pg (25-34); Mean Corpuscular Hgb Conc 34.9 g/dL (32-36); Mean Corpuscular Volume 90.8 fL (80-100); Mean Platelet Volume 10.1 fL (7.4-10.4); Monocytes # (auto) 0.38 K/uL (0.11-0.59); Monocytes % (auto) 4.7 %; Neutrophils # (auto) 5.97 K/uL (1.4-6.5); Neutrophils % (auto) 73.2 %; Platelet Count 234 K/uL (130-400); RDW Coefficient of Variation 12.8 % (11.5-14.5); RDW Standard Deviation 42.4 fL (36.4-46.3); Red Blood Count 3.82 M/uL (4.2-5.4); White Blood Count 8.14 K/uL (4.8-10.8)
[2020-11-28 01:04] LABS: Bilirubin Direct 0.1 mg/dl (0-0.2); Bilirubin,Total 0.4 mg/dl (0.2-1); Magnesium Therapeutic L&D Only 6.7 mg/dL (4.0-8.0); Total Protein 6.4 gm/dl (6.4-8.2)
[2020-11-28] MEDS: ACETAMINOPHEN 325 MG TAB PO PRN (06:00)
--- NOTE | 2020-11-28 06:51 | Obstetrical Progress Note ---
Date of Service November 28, 2020 Assessment & Plan Admission and Anticipated Discharge Date Admission Date: November 27, 2020 Subjective Patient has been on magnesium sulfate for 24 hours she does have a mild headache but otherwise is well her labs are normal her blood pressures are well controlled her most recent blood pressure is 133/85 at this stage we will stop her magnesium and we will allow her to eat a full diet and transfer to the floor Results & Data ([facility]) Vital Signs (Past 12 Hours) Vital Signs Temp Pulse Resp BP Pulse Ox 11/28/20 06:46 71 98 11/28/20 06:43 75 133/85 11/28/20 06:41 90 98 11/28/20 06:36 84 100 11/28/20 06:31 73 99 11/28/20 06:26 73 98 11/28/20 06:21 75 98 11/28/20 06:16 91 H 99 11/28/20 06:11 80 97 11/28/20 06:06 92 H 99 11/28/20 06:01 83 97 11/28/20 06:00 18 11/28/20 05:56 85 96 11/28/20 05:47 87 97 11/28/20 05:43 83 131/83 11/28/20 05:42 87 96 11/28/20 05:37 100 H 97 11/28/20 05:32 92 H 96 11/28/20 05:27 99 H 97 11/28/20 05:22 76 96 11/28/20 05:17 78 96 11/28/20 05:12 78 97 11/28/20 05:07 77 96 11/28/20 05:02 78 97 11/28/20 05:00 16 11/28/20 04:57 83 97 11/28/20 04:52 92 H 95 11/28/20 04:49 87 93 11/28/20 04:47 79 95 11/28/20 04:43 77 136/81 11/28/20 04:42 79 97 11/28/20 04:37 76 97 11/28/20 04:32 81 96 11/28/20 04:27 84 97 11/28/20 04:22 92 H 97 11/28/20 04:17 88 96 11/28/20 04:12 77 96 11/28/20 04:07 77 96 11/28/20 04:02 81 96 11/28/20 04:00 16 11/28/20 03:57 89 97 11/28/20 03:52 76 97 11/28/20 03:47 76 96 11/28/20 03:43 76 132/86 11/28/20 03:42 75 96 11/28/20 03:37 76 98 11/28/20 03:32 79 97 11/28/20 03:27 80 97 11/28/20 03:22 87 97 11/28/20 03:17 85 97 11/28/20 03:12 83 98 11/28/20 03:07 76 97 11/28/20 03:05 97.7 F 18 11/28/20 03:02 74 97 11/28/20 02:57 82 97 11/28/20 02:52 75 97 11/28/20 02:47 77 98 11/28/20 02:43 81 143/90 H 11/28/20 02:42 76 97 11/28/20 02:37 75 96 11/28/20 02:32 76 97 11/28/20 02:27 86 96 11/28/20 02:22 88 98 11/28/20 02:18 92 H 93 11/28/20 02:17 77 96 11/28/20 02:12 76 96 11/28/20 02:07 75 96 11/28/20 02:02 77 96 11/28/20 02:00 14 11/28/20 01:57 77 96 11/28/20 01:52 76 96 11/28/20 01:47 77 96 11/28/20 01:43 82 126/83 11/28/20 01:42 79 98 11/28/20 01:37 76 96 11/28/20 01:32 76 97 11/28/20 01:27 78 97 11/28/20 01:22 83 97 11/28/20 01:17 88 98 11/28/20 01:12 93 H 97 11/28/20 01:07 92 H 97 11/28/20 01:02 90 97 11/28/20 01:00 18 11/28/20 00:57 105 H 96 11/28/20 00:52 83 97 11/28/20 00:47 83 135/86 99 11/28/20 00:39 84 98 11/28/20 00:34 90 97 11/28/20 00:29 93 H 98 11/28/20 00:24 82 97 11/28/20 00:19 90 98 11/28/20 00:14 89 97 11/28/20 00:09 74 96 11/28/20 00:04 77 97 11/28/20 00:00 14 11/27/20 23:59 82 97 11/27/20 23:54 82 98 11/27/20 23:49 82 97 11/27/20 23:44 89 97 11/27/20 23:43 81 138/89 11/27/20 23:39 97 H 98 11/27/20 23:34 81 97 11/27/20 23:29 80 98 11/27/20 23:24 81 97 11/27/20 23:19 89 98 11/27/20 23:14 87 97 11/27/20 23:09 100 H 99 11/27/20 23:00 98.1 F 16 11/27/20 22:58 79 97 11/27/20 22:53 75 97 11/27/20 22:48 73 98 11/27/20 22:43 75 135/87 99 11/27/20 22:38 84 98 11/27/20 22:33 92 H 99 11/27/20 22:28 85 98 11/27/20 22:23 89 98 11/27/20 22:18 87 98 11/27/20 22:13 81 98 11/27/20 22:08 91 H 99 11/27/20 22:03 98 H 100 11/27/20 22:00 16 11/27/20 21:58 78 99 11/27/20 21:53 87 99 11/27/20 21:48 80 98 11/27/20 21:43 82 132/84 98 11/27/20 21:20 87 97 11/27/20 21:15 98 H 98 11/27/20 21:10 82 98 11/27/20 21:05 80 98 11/27/20 21:00 78 18 98 11/27/20 20:55 83 99 11/27/20 20:50 83 99 11/27/20 20:45 83 98 11/27/20 20:40 77 98 11/27/20 20:35 75 98 11/27/20 20:31 75 132/79 11/27/20 20:30 70 97 11/27/20 20:25 72 97 11/27/20 20:20 74 97 11/27/20 20:15 77 99 11/27/20 20:10 86 98 11/27/20 20:05 82 98 11/27/20 20:00 100 H 18 99 11/27/20 19:55 73 97 11/27/20 19:50 74 98 11/27/20 19:45 79 98 11/27/20 19:40 78 99 11/27/20 19:35 89 98 11/27/20 19:31 76 124/77 11/27/20 19:30 78 98 11/27/20 19:25 75 98 11/27/20 19:20 81 98 11/27/20 19:15 88 99 11/27/20 19:10 84 98 11/27/20 19:05 81 98 11/27/20 19:00 97.9 F 77 18 99 11/27/20 18:55 85 97 PG Care Time/CCT Total # of Minutes Spent Total Time Spent with Patient: Total time spent is greater than 50% in coordination of care (as documented) at patient's floor/unit and/or counseling patient: Coding Level of Care Code None
[2020-11-28] MEDS ORDERED: ACETAMINOPHEN 325 MG TAB PO PRN (07:05)
[2020-11-28] MEDS ORDERED: IBUPROFEN 600 MG TAB PO PRN (07:05)
[2020-11-28] MEDS ORDERED: BENZOCAINE 20% AER SPR 82.5 GM CAN EXT PRN (07:05)
[2020-11-28] MEDS ORDERED: OXYTOCIN 30 UNITS/500 ML BAG IV PRN (07:05)
[2020-11-28] MEDS ORDERED: HYDROCORTISONE ACETATE 25 MG SUPP PR PRN (07:05)
[2020-11-28] MEDS ORDERED: DIPHTHERIA/TETANUS/PERTUSSIS 0.5 ML SYR/VIAL IM ONE (07:05)
[2020-11-28] MEDS ORDERED: oxyCODONE/ACETAMINOPHEN 5mg/325mg TAB PO PRN (07:05)
[2020-11-28] MEDS ORDERED: SUPERCREAM 0.870% 15 GM JAR EXT PRN (07:05)
[2020-11-28] MEDS: DOCUSATE SODIUM 100 MG CAP PO SCH (16:54)
[2020-11-28] MEDS: PRENATAL VITAMIN 1 TAB PO SCH (16:55)
[2020-11-29] MEDS ORDERED: CALCIUM CARBONATE 500 MG CHEWABLE TAB PO PRN (00:26)
[2020-11-29] MEDS ORDERED: CALCIUM CARBONATE 500 MG CHEWABLE TAB ONE (00:36)
[2020-11-29] MEDS: DOCUSATE SODIUM 100 MG CAP PO SCH (08:31)
[2020-11-29] MEDS: PRENATAL VITAMIN 1 TAB PO SCH (08:31)
--- NOTE | 2020-11-29 08:37 | Obstetrical Progress Note ---
Date of Service November 29, 2020 Assessment & Plan (1) Pre-eclampsia, : BP's normotensive with only few BP elevations not in severe range except when she had epigastric pain. will d/c to home with written instructions BP check in 1 week . Subjective Ambulation: ambulating normally Voiding: no voiding problems Passing Gas:: Yes Diet Tolerance:: regular diet Lochia:: Small Feeding Type:: breast feeding had episode of chest pain last evening which was in epigastric area- relieved with Tums. no pain now. EKG last night was normal sinus rhythm. no headache or any other PIH symptoms. Physical Exam Constitutional WD/WN, vitals as above Gastrointestinal (Abdomen) Inspection/Auscultation: + abdominal surgical incision (intact and dry- no erythema) Psychiatric A+Ox3, euthymic affect Results & Data ([facility] [place]) Vital Signs (Past 12 Hours) Vital Signs Temp Pulse Resp BP BP Pulse Ox 11/29/20 04:40 98.2 F 63 18 136/88 97 11/28/20 23:45 98.1 F 78 18 147/109 H 139/96 97
--- NOTE | 2020-11-29 09:57 | Electrocardiogram Report ---
Test Reason : Blood Pressure : / mmHG Vent. Rate : 068 BPM Atrial Rate : 068 BPM P-R Int : 168 ms QRS Dur : 074 ms QT Int : 398 ms P-R-T Axes : 042 -16 054 degrees QTc Int : 423 ms Sinus rhythm with sinus arrhythmia with occasional Premature ventricular complexes Poor R wave progression, consider anterior IN vs. lead placement vs. LVH Abnormal ECG When compared with ECG of 27-NOV-2020 01:43, Premature ventricular complexes are now Present Confirmed by Howard Buckner ([id number]) on 11/29/2020 9:57:01 AM Referred By: Tacho Braun Confirmed By:Garry Buckner
[2020-11-29] MEDS ORDERED: bisacodyL 5 MG TABEC PO SCH (20:00)
[2020-11-30] MEDS ORDERED: bisacodyL 10 MG SUPP PR PRN (06:00)
--- NOTE | 2020-12-01 09:21 | Discharge Summary (DS) ---
PRINCIPAL DIAGNOSIS: preeclampsia. HOSPITAL COURSE: The patient is a 1, para 1-0-0-1 white female who had undergone a section on 11/20/2020 because of a breech presentation that surgery was uncomplicated. She then represented to the Emergency Room on 11/27/2020 early in the morning with symptoms of a crushing chest pain and headache. In the Emergency Room, blood pressures were in the range of 170/110, PIH labs were negative. Her EKG was also within normal limits. Cardiac workup also revealed no cardiac source for her pain. But because her pressures were elevated and she is with a mild headache, she was begun on magnesium sulfate for 24 hours. Her headache resolved over the first hospital day. Labs remained within normal limits. Early in the morning of 11/29/2020, she had another episode of the chest pain, but no headache. EKG was repeated and this was within normal limits, suspicion that this was acid reflux was discussed with the patient and she was given Tums, which resolved the chest pain. She was sent home in stable condition. Her pressures had continued to be in the 130s to 140s systolic over 80s to 90, but she no longer had any PIH symptoms. She is to follow up in the office in 1 week for blood pressure check. She is to call for the usual symptoms, severe headache, visual changes, epigastric pain that is unrelieved with antacids, significant swelling in the hands, face or feet, right upper quadrant pain or any other concerns. NEPTALI
== END 2020-11-29 12:30 | disposition home or self-care (01) | DRG 776 ==
LOC: OPB 05:53 → 4S1 05:57 → 4S2 11-28 09:52
DX: O14.95 Unspecified pre-eclampsia, complicating the puerperium

== ENCOUNTER 2022-09-12 05:33 | Inpatient (IN) ==
--- NOTE | 2022-09-10 09:00 | Anesthesiology Consultation ---
Date of Service September 10, 2022 Assessment & Plan Chart Review Chart Review: Acceptable Risk for Surgery and Patient NOT seen in Pre Admission Testing History Surgery Operation Date: 09/12/22 07:30 Proposed Procedures p Section (Delivery of Baby Through Abdominal Incision) - Paige Larsen MD, FACOG Height/Weight Height: 5 ft 5 in Weight: 79.832 kg Allergies Allergy/AdvReac Type Severity Reaction Status Date / Time No Known Allergies Allergy Mild Verified 09/09/22 10:34 Medications Home Medications Medication Instructions Recorded Confirmed Last Taken prenat.vits,jason,[id number] 1 tab PO DAILY 01/28/22 09/09/22 Unknown aspirin 81 mg chewable tablet 81 mg PO DAILY 04/03/22 09/09/22 Unknown ferrous sulfate 325 mg (65 mg 325 mg PO DAILY 07/18/22 09/09/22 Unknown iron) tablet Past Medical History Medical History Pre-eclampsia hx of Spontaneous hx Past Family History Family History Grandmother (Paternal) Breast cancer Diabetes Brother Cancer lymphoma Grandmother (Maternal) Heart disease Father Hypertension Denies family history of Ovarian cancer Colorectal cancer Past Surgical History Surgical History History of wisdom tooth extraction S/P section x1 Status post surgery Hymenectomy 2007 Social History Smoking Status: Never smoker Do You Dip or Chew Tobacco: No Hx Alcohol Use: No Hx Substance Use: No substance use type: does not use
--- NOTE | 2022-09-11 17:06 | History & Physical Report ---
Date of Service September 11, 2022 Assessment & Plan (1) Breech presentation of fetus: (2) Previous delivery affecting , antepartum: Plan Pt to be admitted for planned c/s. risks, alt and complications reviewed. consent signed. plan OR in am. Preop, and postop instructions and course reviewed. Denies questions. Ready to proceed. Will need mmr pp and rhogam eval. History of Present Illness Chief Complaint: planned c/s Primary Care Provider: [facility] PCP 27yo at 39wks for planned c/s for persistent breech presentation with h/o prior c/s. She is aware of ecv as option but declines. She denies vaginal bleeding, rom. +FM. No ctx PNC c/b 1. prior c/s 2. rubella equiv, needs mmr pp 3. rh neg 4. breech 5. h/o pp preeclampsia after prior delivery, taking asa 6. Rh neg. PNL rh pos, ri, gbs neg OBH: c/s, sab x 1 GYNH: no stds, normal paps. Allergies Allergy/AdvReac Type Severity Reaction Status Date / Time No Known Allergies Allergy Mild Verified 09/11/22 15:39 Home Medications Medication Instructions Recorded Confirmed Type prenat.vits,jason,yac-mvkb-kbwce 1 tab PO DAILY 01/28/22 09/11/22 History aspirin 81 mg chewable tablet 81 mg PO DAILY 04/03/22 09/11/22 History ferrous sulfate 325 mg (65 mg 325 mg PO DAILY 07/18/22 09/11/22 History iron) tablet Patient History Medical History Pre-eclampsia hx of Spontaneous hx Surgical History History of wisdom tooth extraction S/P section x1 Status post surgery Hymenectomy 2007 Family History Grandmother (Paternal) Breast cancer Diabetes Brother Cancer lymphoma Grandmother (Maternal) Heart disease Father Hypertension Denies family history of Ovarian cancer Colorectal cancer Social History (Updated 01/28/22 @ 15:07 by Elzbieta Marquez) Smoking Status: Never smoker Second Hand Exposure: No; Hx Alcohol Use: No Hx Substance Use: No Preferred Language: Vietnamese Communication Ability: Effective Simulation Software Engineer Required: No Beliefs That Will Affect Care: None marital status: marital status details: Av Zamora (27) [phone] Current Living Situation: Spouse Current Living Situation Comment: lives with spouse, son, 2 dogs current occupational status: employed current occupation: [employer] Feels Safe at Home: Yes Assistive Devices: Contacts and Glasses Review of Systems as per Subjective / HPI Physical Exam Constitutional: WD/WN, vitals as above Respiratory: normal respiratory effort, lungs clear to auscultation Cardiovascular: Rate/Rhythm: regular rate and regular rhythm Gastrointestinal (Abdomen): Percussion/Palpation: abdomen soft; abdomen nontender and no guarding Neurologic: grossly normal Psychiatric: A+Ox3, euthymic affect Coding Level of Care Code None Diagnoses Breech presentation of fetus O32.1XX0 Previous delivery affecting , antepartum O34.219
[2022-09-12] MEDS ORDERED: LACTATED RINGER'S 1,000 ML IV ONE (05:39)
[2022-09-12] MEDS ORDERED: CITRIC ACID/SODIUM CITRATE 15 ML UDC PO ONE (06:08)
[2022-09-12] MEDS ORDERED: ceFAZolin 2000MG 2,000 MG/15 ML SYR IV ONE (06:15)
[2022-09-12 06:51] LABS: Hematocrit (blood only) 32.1 % (34.1-44.9); Hemoglobin 11.3 g/dl (12.0-16.0); Mean Corpuscular Hemoglobin 32.1 pg (25.0-34.0); Mean Corpuscular Hgb Conc 35.2 g/dL (32.0-36.0); Mean Corpuscular Volume 91.2 fL (80.0-100.0); Mean Platelet Volume 10.6 fL (9.4-12.3); Platelet Count 142 K/uL (130-400); RDW Coefficient of Variation 13.2 % (11.5-14.5); RDW Standard Deviation 43.8 fL (36.4-46.3); Red Blood Count 3.52 M/uL (3.93-5.22); White Blood Count 8.41 K/ul (4.8-10.8)
[2022-09-12 06:59] LABS: Basophils # (auto) 0.04 K/uL (0-0.2); Basophils % (auto) 0.5 %; Eosinophils # (auto) 0.05 K/uL (0-0.50); Eosinophils % (auto) 0.6 %; Immature Granulocytes # (auto) 0.11 K/uL (0.00-0.02); Immature Granulocytes % (auto) 1.3 %; Lymphocytes # (auto) 1.63 K/uL (1.2-3.4); Lymphocytes % (auto) 19.4 %; Monocytes # (auto) 0.54 K/uL (0.24-0.82); Monocytes % (auto) 6.4 %; Neutrophils # (auto) 6.04 K/uL (1.4-6.5); Neutrophils % (auto) 71.8 %
--- NOTE | 2022-09-12 07:22 | History & Physical Bridge Note ---
Date of Service September 12, 2022 History & Physical Bridge Note I have examined the patient, reviewed the History & Physical and in the interval since the performance of the History & Physical I have noted the following changes of clinical significance: no changes noted
[2022-09-12] MEDS ORDERED: ONDANSETRON INJ 2 MG/ML 2 ML VIAL IV PRN (07:27)
[2022-09-12] MEDS ORDERED: HYDROmorphone INJ 0.5 MG/0.5 ML SYR IV PRN (07:27)
[2022-09-12] MEDS ORDERED: ePHEDrine sulfate 50 MG/ML AMP IV PRN (07:27)
[2022-09-12] MEDS ORDERED: NALOXONE HCL 0.08 MG in SYRINGE 1.8 ML IV PRN (07:27)
[2022-09-12] MEDS ORDERED: PROMETHAZINE HCL 6.25 MG in SODIUM CHLORIDE 0.9% 50 ML IV PRN (07:27)
[2022-09-12] MEDS ORDERED: NALBUPHINE HCL INJ 10 MG/ML AMP IV PRN (07:27)
[2022-09-12] MEDS ORDERED: MoRPHine SULFATE 2 MG/ML CARP IV PRN (07:27)
[2022-09-12] MEDS ORDERED: KETOROLAC 30 MG/ML VIAL IV PRN (07:27)
[2022-09-12] MEDS ORDERED: MEPERIDINE HCL 25 MG/ML CARP/VIAL IV PRN (07:27)
[2022-09-12] MEDS ORDERED: NALOXONE HCL 0.4 MG/1 ML VIAL/CARP IV PRN (07:27)
[2022-09-12] MEDS ORDERED: diphenhydrAMINE 50 MG/ML VIAL IV PRN (07:27)
[2022-09-12] MEDS ORDERED: MoRPHine SULFATE PF 1 MG/ML 10 ML AMP/VIAL INT SPINAL ONE (07:27)
[2022-09-12] MEDS ORDERED: LACTATED RINGER'S 500 ML IV PRN (07:27)
[2022-09-12] MEDS ORDERED: NALOXONE HCL 1 MG in SODIUM CHLORIDE 0.9% 1000ML 1,000 ML IV PRN (07:27)
[2022-09-12] MEDS ORDERED: DC INTRASPINAL MORPHINE SCH (07:30)
[2022-09-12] MEDS ORDERED: NO NARCOTICS OR SEDATIVES SCH (07:30)
[2022-09-12] MEDS ORDERED: SODIUM CHLORIDE 0.9% 1000ML 1,000 ML IV SCH (07:30)
[2022-09-12] MEDS ORDERED: MoRPHine SULFATE PF 1 MG/ML 10 ML AMP/VIAL ONE (07:30)
[2022-09-12] MEDS ORDERED: KETOROLAC 30 MG/ML VIAL ONE (07:36)
[2022-09-12] MEDS ORDERED: ONDANSETRON INJ 2 MG/ML 2 ML VIAL ONE (07:36)
[2022-09-12] MEDS ORDERED: OXYTOCIN 10 UNITS/ML 10ML VIAL ONE (07:36)
[2022-09-12] MEDS ORDERED: fentaNYL citrate 100 MCG/2 ML VIAL ONE (08:16)
[2022-09-12] MEDS ORDERED: FAMOTIDINE 20 MG in SYRINGE 3 ML IV ONE (08:30)
--- NOTE | 2022-09-12 08:46 | Post Operative Brief Note ---
PG Immediate Post Op with CF Date of Surgery September 12, 2022 Pre & Post Diagnosis Operation Date: 09/12/22 07:30 Pre-Op Diagnosis: 39 week intrauterine . Prior section. Persistent breech presentation. Post-Op Diagnosis: Same as above. I identified the patient and participated in the time-out.: Yes Procedure Operation Date: 09/12/22 07:30 Actual Procedures p Repeat Low Transverse Section (Delivery of Baby Through Abdominal Incision)delivery of live female child at 0803(Bilateral) - Paige Larsen MD, FACOG Surgeon Paige Larsen MD, FACOG Shipyard Painting Supervisor Dania Estimated Blood Loss 500 Findings Consistent with Post-Op Diagnosis (viable female, apgars pending. normal uterus, tubes and ovaries bilaterally) Fluids 1500 Specimens Specimen Description: A: Placenta hold B: Cord blood Drains [place] Catheter (draining clear yellow urine during surgery) Anesthesia Type Spinal Complications none Disposition Accompanied Patient To Recovery: No Disposition: L&D
--- NOTE | 2022-09-12 09:04 | Operative Report ---
PG Post Operative Report Pre & Post Diagnosis Operation Date: 09/12/22 07:30 Pre-Op Diagnosis: 39 week intrauterine . Prior section. Persistent breech presentation. Post-Op Diagnosis: Same as above. I identified the patient and participated in the time-out.: Yes Procedure Operation Date: 09/12/22 07:30 Actual Procedures p Repeat Low Transverse Section Surgeon Paige Larsen MD, FACOG Saw Handle Assembler Dania Estimated Blood Loss 500 Findings Consistent with Post-Op Diagnosis (viable female, apgars pending. normal uterus, tubes and ovaries bilaterally) Fluids 1500 Specimens cord blood Drains draper Anesthesia Type Spinal Complications none Disposition Accompanied Patient To Recovery: No Disposition: L&D Indications 27yo at 39wks for planned section for breech presentation with history of prior c/s. Description of Procedure The patient was taken to the operating room and identified. After adequate anesthesia was obtained, she was placed in the supine position with a leftward tilt on the operating table and prepped and draped in the usual sterile fashion. A draper catheter had already been placed. The knife was used to create a Pfannensteil skin incision that was carried down to the underlying layer of fascia. The fascia was nicked in the midline and this opening was extended laterally using Norton scissors. Sita clamps were placed on the superior and inferior aspect of the fascial incision tenting it upward and the underlying rectus muscles were dissected off the overlying fascia both sharply and bluntly using Norton scissors. The rectus muscles were bluntly in the midline. The peritoneal cavity was bluntly entered into. This opening was stretched. The bladder blade was placed. The vesicouterine peritoneum was elevated and opened up into and the bladder flap was created digitally and bladder blade was replaced. The knife was used to create a hysterotomy and this opening was stretched. The operators hand was placed through the hysterotomy and the bladder blade was removed. The buttocks was elevated and flexed and with fundal pressure was delivered followed by the body to the level of the shoulders. The arms were swept across the anterior midline and the head was flexed and delivered. The cord was clamped and cut and the infant's mouth and nares were bulb suction. The infant was handed off to the awaiting pediatricians. Cord blood was obtained. The placenta was manually expressed. The uterus was exteriorized and cleared of all clots and debris. Dilute IV Pitocin was begun. The uterine tone was improving. The hysterotomy was closed in a running interlocking fashion using 0 Vicryl followed by a second imbricating layer of 0 Vicryl. The hysterotomy was hemostatic. The pelvis was irrigated. The uterus was returned to the abdomen. The gutters were cleared of all clots and debris. The hysterotomy was reinspected and noted to be hemostatic. The fascia was then closed in running fashion using 0 Vicryl. The subcutaneous fat was copiously irrigated and reapproximated using 2-0 chromic. The skin was closed in a subcuticular fashion using 4-0 monocryl. At this point the procedure was terminated. The patient was transferred to the recovery room in stable condition. All sponge, lap and needle counts are correct x2. I attest to the content of the Intraoperative Record and any orders documented therein. Any exceptions are noted below. OB Procedure Charges 43144
[2022-09-12] MEDS ORDERED: MEASLES, MUMPS & RUBELLA VIRUS VIAL SQ ONE (09:08)
[2022-09-12] MEDS ORDERED: HYDROCORTISONE ACETATE 25 MG SUPP PR PRN (09:10)
[2022-09-12] MEDS ORDERED: BENZOCAINE 20% AER SPR 82.5 GM CAN EXT PRN (09:10)
[2022-09-12] MEDS ORDERED: DIPHTHERIA/TETANUS/PERTUSSIS 0.5 ML SYR/VIAL IM ONE (09:10)
[2022-09-12] MEDS ORDERED: MAGNESIUM HYDROXIDE SUSP 30 ML UDC PO PRN (09:10)
[2022-09-12] MEDS ORDERED: SENNA 8.6 MG TAB PO PRN (09:10)
[2022-09-12] MEDS: OXYTOCIN 20 UNITS in LACTATED RINGER'S 1,000 ML IV SCH ×2 (11:14→19:02)
[2022-09-12] MEDS: SIMETHICONE 80 MG CHEW PO SCH ×3 (12:44→21:02)
--- NOTE | 2022-09-12 15:37 | Anesthesiology Progress Note ---
Date of Service September 12, 2022 Anesthesia Post Procedure Vital Signs Vital Signs: Temp Pulse Pulse Resp BP BP Pulse Ox 09/12/22 14:10 16 99 09/12/22 11: 36.5 C 80 18 125/79 97 09/12/22 13:10 18 97 09/12/22 12:20 18 99 09/12/22 11:22 18 97 09/12/22 07:10 36.9 C 18 09/12/22 11:01 75 93 09/12/22 10:59 68 96 09/12/22 10:54 95 09/12/22 10:54 79 09/12/22 10:54 78 93 09/12/22 10:51 75 118/73 09/12/22 10:49 70 96 09/12/22 10:44 71 96 09/12/22 10:39 69 95 09/12/22 10:36 75 113/69 09/12/22 10:35 69 93 09/12/22 10:34 66 96 09/12/22 10:29 65 95 09/12/22 10:24 68 96 09/12/22 10:21 65 114/61 09/12/22 10:19 69 96 09/12/22 10:14 97 09/12/22 10:14 68 09/12/22 10:14 71 94 09/12/22 10:09 64 96 09/12/22 10:06 75 09/12/22 10:06 68 115/62 94 09/12/22 10:04 69 96 09/12/22 09:59 76 96 09/12/22 09:54 69 96 09/12/22 09:51 71 125/59 L 09/12/22 09:49 67 96 09/12/22 09:46 78 93 09/12/22 09:44 65 96 09/12/22 09:40 65 111/67 09/12/22 09:39 70 97 09/12/22 09:34 77 94 09/12/22 09:33 74 94 09/12/22 09:30 63 113/74 09/12/22 09:29 64 96 09/12/22 09:24 65 98 09/12/22 09:21 61 117/76 09/12/22 09:19 73 95 09/12/22 09:14 67 96 09/12/22 09:13 71 114/67 09/12/22 09:09 72 97 09/12/22 09:04 65 97 09/12/22 09:03 60 120/58 L 09/12/22 09:02 71 92 09/12/22 08:59 77 96 09/12/22 08:54 68 98 09/12/22 08:53 63 115/72 09/12/22 08:49 69 99 09/12/22 07:10 18 09/12/22 07:10 36.9 C 18 09/12/22 07:09 75 130/79 09/12/22 05:43 89 122/75 09/12/22 05:43 36.9 C 18 O2 Del Method 09/12/22 14:10 09/12/22 11:22 Room Air 09/12/22 13:10 09/12/22 12:20 09/12/22 11:22 09/12/22 07:10 09/12/22 11:01 09/12/22 10:59 09/12/22 10:54 09/12/22 10:54 09/12/22 10:54 09/12/22 10:51 09/12/22 10:49 09/12/22 10:44 09/12/22 10:39 09/12/22 10:36 09/12/22 10:35 09/12/22 10:34 09/12/22 10:29 09/12/22 10:24 09/12/22 10:21 09/12/22 10:19 09/12/22 10:14 09/12/22 10:14 09/12/22 10:14 09/12/22 10:09 09/12/22 10:06 09/12/22 10:06 09/12/22 10:04 09/12/22 09:59 09/12/22 09:54 09/12/22 09:51 09/12/22 09:49 09/12/22 09:46 09/12/22 09:44 09/12/22 09:40 09/12/22 09:39 09/12/22 09:34 09/12/22 09:33 09/12/22 09:30 09/12/22 09:29 09/12/22 09:24 09/12/22 09:21 09/12/22 09:19 09/12/22 09:14 09/12/22 09:13 09/12/22 09:09 09/12/22 09:04 09/12/22 09:03 09/12/22 09:02 09/12/22 08:59 09/12/22 08:54 09/12/22 08:53 09/12/22 08:49 09/12/22 07:10 09/12/22 07:10 09/12/22 07:09 09/12/22 05:43 09/12/22 05:43 Pain Intensity Abdomen: Pain Intensity: 2 Transfer of Care Handoff Completed per policy Notes Mental Status: alert / awake / arousable Patient Amnestic to Procedure: Yes Nausea / Vomiting: adequately controlled Pain: adequately controlled Airway Patency, RR, SpO2: stable & adequate BP & HR: stable & adequate Hydration State: stable & adequate Neuraxial Anesthesia: was administered and sensory block is resolving Anesthetic Complications: no major complications apparent and Pt Satisfied with anesthetic care
[2022-09-12] MEDS: DOCUSATE SODIUM 100 MG CAP PO SCH (21:02)
[2022-09-13] MEDS ORDERED: PROMETHAZINE HCL 25 MG in SODIUM CHLORIDE 0.9% 50 ML IV PRN (01:27)
[2022-09-13] MEDS ORDERED: ONDANSETRON INJ 2 MG/ML 2 ML VIAL IV PRN (01:27)
[2022-09-13] MEDS ORDERED: diphenhydrAMINE Capsule 25 MG CAP PO PRN (01:27)
[2022-09-13] MEDS ORDERED: ZOLPIDEM TARTRATE 5 MG TAB PO PRN (01:27)
[2022-09-13] MEDS ORDERED: diphenhydrAMINE 50 MG/ML VIAL IV PRN (01:27)
[2022-09-13] MEDS: IBUPROFEN 600 MG TAB PO PRN ×5 (02:26→18:20)
[2022-09-13] MEDS: oxyCODONE/ACETAMINOPHEN 5mg/325mg TAB PO PRN ×5 (02:27→18:20)
--- NOTE | 2022-09-13 05:57 | Obstetrical Progress Note ---
Date of Service September 13, 2022 Assessment & Plan (1) Previous delivery affecting , antepartum: (2) Need for MMR vaccine: (3) Need for rhogam due to Rh negative mother: (4) Breech presentation of fetus: Plan s/p POD#1: Vital signs reviewed and WNL, Tmax at 36.9 Hemoglobin 11.3 (09/12) 9.9 (09/13) A-, GBS negative, Rubella equivocal (needs MMR) Progress diet as tolerated, treat pain as needed Encourage ambulation Admission and Anticipated Discharge Date Admission Date: September 12, 2022 Supervising Physician Co-Signing Physician Notes Resident Physician Supervision Note: I was present with Dr. Paredes during the history and exam. I discussed the case with the resident and agree with the findings and plan as documented in the note. Any exceptions or clarifications are listed here: stable, routine care. taking po, voiding well. ready to eat. incision c/d/i ext nt calves. will adv diet, ambulate, use po pain meds. baby rh neg, no rhogam needed. mmr ordered. hgb noted. Documented By: Paige Larsne MD, FACOG Subjective Arelis is a 27 y/o female who is POD #1 following delivery at 39 6/7 weeks. Has hx of previous , repeat performed due to breech presentation. She reports feeling well overall this morning. Notes some abdominal cramping but pain managed on analgesics. [place] catheter removed yesterday and voiding without issue. States she didn't eat much yesterday because she felt bloated, but later passed gas and was able to eat some cereal- is hungry this morning. Able to ambulate some. Has some persistent lochia with some improvement this morning. Currently breast feeding. Review of Systems Constitutional: no fever, no chills and no sweats Respiratory: no cough, no dyspnea and no wheezing Cardiovascular: no chest pain, no palpitations and no calf pain Genitourinary: no dysuria Neurologic: no headache(s) Physical Exam Constitutional: WD/WN, vitals as above no acute distress Respiratory: no respiratory distress Auscultation: lungs clear to auscultation bilaterally; no rales, no rhonchi and no wheezes Cardiovascular: RRR, no murmur, no edema Extremities: no calf tenderness and no edema Negative Ulises's sign bilaterally. Gastrointestinal (Abdomen): Inspection/Auscultation: normal bowel sounds Genitourinary: Uterine fundus firm, palpable below the umbilicus. Surgical incision site clean and healing appropriately. Results & Data ([facility]) Vital Signs (Past 12 Hours) Vital Signs Temp Pulse Resp BP Pulse Ox Pulse Ox O2 Del Method 09/13/22 03:10 36.8 C 73 18 112/73 97 Room Air 09/13/22 01:22 20 99 09/13/22 01:22 99 09/13/22 00:00 18 99 09/12/22 23:00 18 97 09/12/22 22:00 18 98 09/12/22 22:59 36.6 C 75 18 122/76 99 Room Air 09/12/22 21:03 18 99 09/12/22 20:15 18 99 09/12/22 19:50 36.8 C 68 18 124/84 99 Room Air 09/12/22 19:15 18 99 09/12/22 18:15 16 99 O2 Del Method 09/13/22 03:10 09/13/22 01:22 09/13/22 01:22 Room Air 09/13/22 00:00 09/12/22 23:00 09/12/22 22:00 09/12/22 22:59 09/12/22 21:03 09/12/22 20:15 09/12/22 19:50 09/12/22 19:15 09/12/22 18:15 Resident Activity Tracking Resident Involvement: Resident Care Provided Care Provided: OB Delivery
[2022-09-13 07:22] LABS: Hematocrit (blood only) 28.4 % (34.1-44.9); Hemoglobin 9.9 g/dl (12.0-16.0); Mean Corpuscular Hemoglobin 32.6 pg (25.0-34.0); Mean Corpuscular Hgb Conc 34.9 g/dL (32.0-36.0); Mean Corpuscular Volume 93.4 fL (80.0-100.0); Mean Platelet Volume 10.6 fL (9.4-12.3); Platelet Count 125 K/uL (130-400); RDW Coefficient of Variation 13.3 % (11.5-14.5); RDW Standard Deviation 45.5 fL (36.4-46.3); Red Blood Count 3.04 M/uL (3.93-5.22); White Blood Count 8.41 K/ul (4.8-10.8)
[2022-09-13] MEDS: SIMETHICONE 80 MG CHEW PO SCH ×4 (07:43→20:39)
[2022-09-13] MEDS: DOCUSATE SODIUM 100 MG CAP PO SCH ×2 (07:43→20:39)
[2022-09-13] MEDS: PRENATAL VITAMIN 1 TAB PO SCH (07:43)
[2022-09-13] MEDS: FERROUS SULFATE 325 MG TAB PO SCH (07:43)
[2022-09-13 07:46] LABS: Basophils # (auto) 0.03 K/uL (0-0.2); Basophils % (auto) 0.4 %; Eosinophils # (auto) 0.05 K/uL (0-0.50); Eosinophils % (auto) 0.6 %; Immature Granulocytes # (auto) 0.06 K/uL (0.00-0.02); Immature Granulocytes % (auto) 0.7 %; Lymphocytes # (auto) 1.12 K/uL (1.2-3.4); Lymphocytes % (auto) 13.3 %; Monocytes # (auto) 0.41 K/uL (0.24-0.82); Monocytes % (auto) 4.9 %; Neutrophils # (auto) 6.74 K/uL (1.4-6.5); Neutrophils % (auto) 80.1 %; Polychromasia 1+
[2022-09-14] MEDS: IBUPROFEN 600 MG TAB PO PRN ×3 (00:45→11:22)
[2022-09-14] MEDS: oxyCODONE/ACETAMINOPHEN 5mg/325mg TAB PO PRN ×3 (00:46→11:23)
--- NOTE | 2022-09-14 06:21 | Obstetrical Progress Note ---
Date of Service September 14, 2022 Assessment & Plan (1) Previous delivery affecting , antepartum: (2) Need for rhogam due to Rh negative mother: (3) Breech presentation of fetus: Plan s/p POD#2: Vital signs reviewed and WNL, Tmax at 36.9 Hemoglobin 11.3 (09/12) 9.9 (09/13) 9.5 (09/14) A-, GBS negative, Rubella equivocal (received MMR) Continue regular diet, treat pain as needed Encourage ambulation Discussed discharge, planning to d/c today Admission and Anticipated Discharge Date Admission Date: September 12, 2022 Supervising Physician Co-Signing Physician Notes Resident Physician Supervision Note: I was present with Dr. Gomez during the history and exam. I discussed the case with the resident and agree with the findings and plan as documented in the note. Any exceptions or clarifications are listed here: POD#2 doing well, desires DC home. Reviewed DC instructions, Rx percocet #20 tabs sent to [facility]. Documented By: DO Michelle Crow Arelis is a 27 y/o female who is POD #2 following delivery at 39 6/7 weeks. Has hx of previous , repeat performed due to breech presentation. She reports feeling well overall this morning. Notes some abdominal cramping but pain managed on analgesics. Voiding without issue. States she was able to tolerate regular meals in the last day, denies nausea or vomiting. Able to ambulate. Has some persistent lochia with some improvement this morning. Currently breast feeding. Review of Systems Constitutional: no fever, no chills and no sweats Respiratory: no cough, no dyspnea and no wheezing Cardiovascular: no chest pain, no palpitations and no calf pain Genitourinary: no dysuria Neurologic: no headache(s) Physical Exam Constitutional: WD/WN, vitals as above no acute distress Respiratory: no respiratory distress Auscultation: lungs clear to auscultation bilaterally; no rales, no rhonchi and no wheezes Cardiovascular: RRR, no murmur, no edema Extremities: no calf tenderness and no edema Gastrointestinal (Abdomen): Inspection/Auscultation: normal bowel sounds Genitourinary: Uterine fundus firm, palpable below umbilicus. Surgical incision site clean and healing appropriately. Results & Data ([facility]) Vital Signs (Past 12 Hours) Vital Signs Temp Pulse Resp BP Pulse Ox O2 Del Method 09/14/22 00:45 36.9 C 70 18 126/82 100 Room Air 09/13/22 20:30 36.8 C 71 18 121/82 98 Room Air Resident Activity Tracking Resident Involvement: Resident Care Provided Care Provided: OB Delivery
[2022-09-14 07:04] LABS: Hematocrit (blood only) 28.6 % (34.1-44.9); Hemoglobin 9.5 g/dl (12.0-16.0)
[2022-09-14] MEDS ORDERED: bisacodyL 10 MG SUPP PR PRN (08:48)
[2022-09-14] MEDS: SIMETHICONE 80 MG CHEW PO SCH (08:57)
[2022-09-14] MEDS: FERROUS SULFATE 325 MG TAB PO SCH (08:57)
[2022-09-14] MEDS: DOCUSATE SODIUM 100 MG CAP PO SCH (08:57)
[2022-09-14] MEDS: PRENATAL VITAMIN 1 TAB PO SCH (08:57)
--- NOTE | 2022-09-16 09:35 | Discharge Summary ---
Date of Service September 16, 2022 Admission HPI Per Admitting Provider 27yo at 39wks for planned c/s for persistent breech presentation with h/o prior c/s. She is aware of ecv as option but declines. She denies vaginal bleeding, rom. +FM. No ctx PNC c/b 1. prior c/s 2. rubella equiv, needs mmr pp 3. rh neg 4. breech 5. h/o pp preeclampsia after prior delivery, taking asa 6. Rh neg. PNL rh pos, ri, gbs neg OBH: c/s, sab x 1 GYNH: no stds, normal paps. Discharge Data Procedures Performed Operation Date: 09/12/22 07:30 Actual Procedures p Repeat Low Transverse Section (Delivery of Baby Through Abdominal Incision)delivery of live female child at 0803(Bilateral) - Paige Larsen MD, [facility] Course (1) Delivery by section: (2) Breech presentation of fetus: Plan The patient underwent the above stated procedure without incident and her postoperative course and recovery was uncomplicated. On her postoperative day #2 she was tolerating a regular diet, voiding spontaneously, ambulating without problem and was using oral meds for adequate pain control. Her postoperative hemoglobin was 9.5. She was given written and verbal discharge instructions and told to followup in office at 6wks. She was given appropriate pain medicine prescriptions. Coding Level of Care Code None Diagnoses Delivery by section Breech presentation of fetus O32.1XX0
== END 2022-09-14 12:20 | disposition home or self-care (01) | DRG 787 ==
LOC: 4S1 05:33 → 4E2 11:10 → EDSTATUS 09-20 08:50

== ENCOUNTER 2025-10-01 16:23 | Inpatient (IN) ==
[2025-10-01] MEDS: ONDANSETRON INJ 2 MG/ML 2 ML VIAL IV STA ×2 (16:58→21:33)
--- NOTE | 2025-10-01 16:58 | Emergency Department Note ---
Impression & Plan Abdominal pain, LLQ (left lower quadrant), Acute pelvic inflammatory disease ED Provider Note HISTORY OF PRESENT ILLNESS: Patient is a 30-year-old female presenting with left lower quadrant abdominal pain. Patient reports she has a history of ovarian cyst. She was seen earlier this week for pain on her right side. States that around 2:30 PM she developed sharp significant pain in her left lower quadrant. She reports she took 4 Tylenol at that time with little relief in her symptoms. She reports feeling very nauseous at the onset of pain but her nausea has improved currently. She is now complaining of discomfort diffusely across her lower abdomen, but reports her left lower quadrant is the worst. Denies any dysuria or hematuria. She has been having vaginal discharge, but states that she has been having that all week and it has not changed. Denies any fevers or chills. Patient denies any chest pain or shortness of breath. ROS: as above PHYSICAL EXAM: Constitutional: Patient appears in no acute distress. HENT: Head: Normocephalic and atraumatic. Eyes: EOMI, PERRL Mouth/Throat: Mucous membranes moist. Neck: Trachea midline. Neck supple. Abdominal: Abdomen soft, no rebound or guarding. RLQ and LLQ TTP Musculoskeletal: No edema, tenderness or deformity noted. Skin: Warm and dry. No rash, erythema, pallor or cyanosis Psychiatric: Appropriate mood and affect for situation. Neurological: Alert and keenly responsive. CN II-XII grossly intact, moving all extremities equally and fully. MDM: - Vitals signs showed tachycardia - History obtained via patient. History as above. - Chronic conditions affecting care: Previous ectopic - Differential diagnoses include, but are not limited to: diverticulitis; ectopic ; ovarian cyst; ovarian torsion; pelvic inflammatory disease; ureteral calculi - Order placed for continuous cardiac monitoring. At this time, monitor showed rate of 110 bpm with normal sinus rhythm, per my interpretation. - External medical records reviewed. CT abdomen/pelvis from 09/27/2025 was reviewed. Patient had a dilated, fluid-filled tubular structure in the left adnexa concerning for potential hydrosalpinx. This was seen on a CT from 2019. - Laboratory workup interpreted by myself showed normal WBC; slight hypokalemia (K 3.4); normal AST/ALT; normal lipase; negative hCG - Patient given 50 mcg IV fentanyl and 4 mg IV zofran. On reassessment, she is still complaining of pain. Given 4 mg IV morphine. - Transvaginal US showed interval enlargement of a complex left adnexal cyst with moderate amounts of complex free fluid in the pelvis. Radiology recommends correlating clinically to exclude tubo-ovarian abscess. - Discussed case with [facility] electronic sales and service technician on-call, Dr. Cheng, at 19:15. She is coming into the hospital to evaluate the patient. Recommended that the patient be started on triple antibiotic therapy to cover for PID. Reports that if the patient can tolerate oral pain medications and potentially be discharged for close follow-up on Friday or Friday to potentially discuss surgery. However, patient is unable to tolerate symptoms or pain continues, would recommend admission for possible surgery in the inpatient setting. - Discussed results with the patient. She would like to discuss options with the electronic sales and service technician when she arrives. - IV ceftriaxone, IV doxycycline and IV flagyl ordered for thick inflammatory disease coverage. - Dr. Cheng reports she will admit the patient 19:15. Requested that the patient have a GC/chlamydia swab sent. Patient self swabbed for this. - Patient admitted to inpatient gynecology service for further evaluation and management. ASSESSMENT AND PLAN: Diagnosis: LLQ abdominal pain; acute pelvic inflammatory disease Plan: Admit Past Med/Surg History Problem List (Updated 10/01/25 @ 21:09 by Thania Grover MD) Acute pelvic inflammatory disease (Acute) Abdominal pain, LLQ (left lower quadrant) (Acute) Left pyosalpinx Abdominal pain (Acute) Ovarian cyst (Acute) Hydrosalpinx (Acute) Left foot pain Ectopic Previous delivery affecting , antepartum Need for rhogam due to Rh negative mother Medical History Varicella vaccination Pre-eclampsia hx of Spontaneous hx Surgical History S/P section x2 History of wisdom tooth extraction Status post surgery Hymenectomy 2007 Family History Grandmother (Paternal) Breast cancer Diabetes Brother Cancer lymphoma Grandmother (Maternal) Heart disease Father Hypertension Denies family history of Ovarian cancer Colorectal cancer Social History Smoking Status: Never smoker Second Hand Exposure: No; Do You Dip or Chew Tobacco: No; Hx Alcohol Use: No Hx Substance Use: No Preferred Language: Citizen Of [place] Communication Ability: Effective Senior Sales Executive Required: No Beliefs That Will Affect Care: None marital status: marital status details: Av Zamora (30) [phone] Current Living Situation: Spouse and Family Current Living Situation Comment: lives with spouse, 2 children, dog current occupational status: employed 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[employer] Feels Safe at Home: Yes Diet: regular Assistive Devices: Contacts and Glasses Allergies Allergies Allergy/AdvReac Type Severity Reaction Status Date / Time No Known Allergies Allergy Mild Verified 06/16/24 13:21 Results & Data (ED) Vital Signs Vital Signs - 24 hr 10/01/25 16:24 10/01/25 16:35 10/01/25 16:46 Temperature 37.4 C Temperature Source Oral Pulse Rate 122 H Pulse Rate [Finger] 125 H Respiratory Rate 18 22 Respiratory Effort / Characteristics Non-Labored Spontaneous Non-Labored Respiratory Depth Normal Normal Respiratory Pattern Regular Regular Blood Pressure 133/88 Blood Pressure [Left Arm] Blood Pressure Mean 103 Blood Pressure Mean [Left Arm] Pulse Oximetry 98 100 99 Oxygen Delivery Method Room Air Room Air Room Air Sepsis Recent Fever Within 48 Hours No Sepsis New/Unexplained Change in Mental Status N/A Sepsis Action Taken by Nursing No Action Required 10/01/25 18:22 10/01/25 20:45 Temperature Temperature Source Pulse Rate Pulse Rate [Finger] 112 H 112 H Respiratory Rate 18 16 Respiratory Effort / Characteristics Non-Labored Spontaneous Non-Labored Spontaneous Respiratory Depth Normal Normal Respiratory Pattern Regular Blood Pressure Blood Pressure [Left Arm] 113/70 105/68 Blood Pressure Mean Blood Pressure Mean [Left Arm] 84 80 Pulse Oximetry 99 99 Oxygen Delivery Method Room Air Room Air Sepsis Recent Fever Within 48 Hours Sepsis New/Unexplained Change in Mental Status Sepsis Action Taken by Nursing Laboratory Data 10/01/25 16:45 10/01/25 16:45 Lab Results 10/01/25 10/01/25 Range/Units 16:45 20:24 WBC 4.44 L (4.8-10.8) K/ul RBC 3.88 L (4.20-5.40) M/uL Hgb 12.1 (12.0-16.0) g/dL Hct 33.8 L (37.0-47.0) % MCV 87.1 (80.0-100.0) fL MCH 31.2 (25.0-34.0) pg MCHC 35.8 (32.0-36.0) g/dL RDW Std Deviation 37.8 (36.4-46.3) fL RDW Coeff of Trinity 11.8 (11.5-14.5) % Plt Count 209 (130-400) K/uL MPV 10.0 (9.4-12.4) fL Immature Gran % (Auto) 0.2 % Neut % (Auto) 75.5 % Lymph % (Auto) 16.9 % [place] % (Auto) 7.0 % Eos % (Auto) 0.2 % Baso % (Auto) 0.2 % Neut # (Auto) 3.35 (1.40-6.50) K/uL Lymph # (Auto) 0.75 L (1.20-3.40) K/uL [place] # (Auto) 0.31 (0.11-0.59) K/uL Eos # (Auto) 0.01 (0.00-0.50) K/uL Baso # (Auto) 0.01 (0.00-0.20) K/uL Immature Gran # (Auto) 0.01 (0.01-0.20) K/uL Sodium 135 L (136-145) mmol/L Potassium 3.4 L (3.5-5.1) mmol/L Chloride 101 (98-107) mmol/L Carbon Dioxide 25 (21-32) mmol/L Anion Gap 9 (3-11) BUN 9 (6-23) mg/dl Creatinine 0.58 L (0.6-1.2) mg/dl Est Cr Clr Drug Dosing 126.5 ml/min eGFR 124.00 BUN/Creatinine Ratio 15.5 (10-20) Glucose 111 H (70-99(Fasting)) mg/dl Calcium 8.9 (8.6-10.3) mg/dl Total Bilirubin 0.7 (0.2-1.0) mg/dl AST 10 L (13-39) U/L ALT 9 (7-52) U/L Alkaline Phosphatase 46 (34-104) U/L Total Protein 7.1 (6.0-8.3) gm/dl Albumin 3.8 (3.4-5.0) gm/dl Globulin 3.3 (2.5-4.0) gm/dl Albumin/Globulin Ratio 1.2 (0.9-2) Lipase 13 (11-82) U/L HCG, Qual Negative (Negative) Urine Color Yellow Urine Appearance Clear (Clear) Urine pH 5.5 (4.5-7.5) Ur Specific [place] 1.018 (1.000-1.030) Urine Protein Trace H (Negative) Urine Glucose (UA) Negative (Negative) Urine Ketones 3+ H (Negative) Urine Blood Trace H (Negative) Urine Nitrite Negative (Negative) Urine Bilirubin Negative (Negative) Urine Urobilinogen Negative (Negative) Ur Leukocyte Esterase 1+ H (Negative) Urine WBC (Auto) 0-5 (0-5) /hpf Urine RBC (Auto) 0-2 (0-2) /hpf U Hyaline Cast (Auto) 0-2 (0-2) /lpf U Epithel Cells (Auto) 0-2 (0-2) /hpf Urine Bacteria (Auto) None Seen (None Seen) Urine Comment Administered Medications Doxycycline Hyclate 100 mg/ (Dextrose) 100 mls @ 50 mls/hr IV NOW STA Stop: 10/01/25 21:17 Last Admin: 10/01/25 20:21 Dose: 50 mls/hr Documented By: TOBI Discontinued Medications Fentanyl Citrate (Fentanyl Citrate Pf 100 Mcg/2 Ml Vial) 50 mcg IV NOW STA Stop: 10/01/25 16:55 Last Admin: 10/01/25 17:00 Dose: 50 mcg Documented By: CARMINA Ceftriaxone Sodium (Rocephin) 2,000 mg in 50 mls @ 100 mls/hr IV NOW STA Stop: 10/01/25 19:47 Last Infusion: 10/01/25 20:18 Dose: Infused Documented By: Admin: 10/01/25 19:33 Dose: 100 mls/hr Documented By: TOBI Metronidazole (Flagyl) 500 mg in 100 mls @ 100 mls/hr IV NOW STA; Protocol Stop: 10/01/25 20:17 Last Infusion: 10/01/25 20:44 Dose: Infused Documented By: Admin: 10/01/25 19:33 Dose: 100 mls/hr Documented By: TOBI Morphine Sulfate (Morphine Sulfate 4 Mg/Ml 1 Ml Carp\Vial) 4 mg IV NOW STA Stop: 10/01/25 19:07 Last Admin: 10/01/25 19:14 Dose: 4 mg Documented By: CARMINA Ondansetron HCl (Ondansetron Inj 2 Mg/Ml 2 Ml Vial) 4 mg IV NOW STA Stop: 10/01/25 16:55 Last Admin: 10/01/25 16:58 Dose: 4 mg Documented By: CARMINA Imaging Data Radiologist's Impression: Pelvis Ultrasound 10/01/25 16:39 REASON FOR EXAM: Left lower quadrant pain COMPARISON: None FINDINGS: UTERUS: Measures 9.7 x 4.6 x 5.7 cm. Heterogeneous echotexture. No discrete fibroids. The endometrial stripe measure 8 mm. Normal echogenicity. RIGHT OVARY: Measures 4.2 x 2.9 x 3.7 cm. Complex cyst measures 2.0 x 2.0 x 1.4 cm. Normal blood flow. LEFT OVARY: Measures 4.0 x 2.8 x 3.8 cm. Normal echogenicity. Normal blood flow. OTHER: Moderate amount of complex fluid in the pelvis. There is a large complex cyst in the left adnexa is noted to measure 6.8 x 4.0 x 7.1 cm. IMPRESSION: Interval enlargement of the complex left adnexal cyst. Correlate clinically to exclude tubo-ovarian abscess. Moderate amount of complex free fluid Electronically signed by Ebony Delgado 10-01-2025 6:58 PM Discharge Plan Visit Data Chief Complaint: Pelvic Pain Stated Complaint: PELVIC PAIN, CYST ED Provider: Thania Grover Discharge Problem: Abdominal pain, LLQ (left lower quadrant), Acute pelvic inflammatory disease Patient Disposition: Admitted As Inpatient Condition: Fair Forms Stand Alone Forms: My [facility] Referrals Referrals: PCP,NO [Primary Care Provider] -
[2025-10-01 17:02] LABS: Hematocrit (blood only) 33.8 % (37.0-47.0); Hemoglobin 12.1 g/dL (12.0-16.0); Immature Granulocytes # (auto) 0.01 K/uL (0.01-0.20); Immature Granulocytes % (auto) 0.2 %; Mean Corpuscular Hemoglobin 31.2 pg (25.0-34.0); Mean Corpuscular Volume 87.1 fL (80.0-100.0); Platelet Count 209 K/uL (130-400); RDW Standard Deviation 37.8 fL (36.4-46.3); Red Blood Count 3.88 M/uL (4.20-5.40); White Blood Count 4.44 K/ul (4.8-10.8)
[2025-10-01 17:19] LABS: Pregnancy Test, Serum Negative (Negative)
[2025-10-01 17:22] LABS: Alanine Aminotransferase 9.0 U/L (7-52); Albumin Globulin Ratio 1.2 (0.9-2); Albumin Level 3.8 gm/dl (3.4-5.0); Alkaline Phosphatase 46.0 U/L (34-104); Anion Gap 9.0 (3-11); Bilirubin,Total 0.7 mg/dl (0.2-1.0); Blood Urea Nitrogen 9.0 mg/dl (6-23); Calcium 8.9 mg/dl (8.6-10.3); Carbon Dioxide 25.0 mmol/L (21-32); Chloride 101.0 mmol/L (98-107); Creatinine Clr Calc Pharmacy 126.5 ml/min; Globulin 3.3 gm/dl (2.5-4.0); Glucose 111.0 mg/dl (70-99(Fasting)); Lipase 13.0 U/L (11-82); Potassium 3.4 mmol/L (3.5-5.1); Sodium 135.0 mmol/L (136-145); Total Protein 7.1 gm/dl (6.0-8.3)
--- NOTE | 2025-10-01 19:01 | Ultrasound Report ---
REASON FOR EXAM: Left lower quadrant pain COMPARISON: None FINDINGS: UTERUS: Measures 9.7 x 4.6 x 5.7 cm. Heterogeneous echotexture. No discrete fibroids. The endometrial stripe measure 8 mm. Normal echogenicity. RIGHT OVARY: Measures 4.2 x 2.9 x 3.7 cm. Complex cyst measures 2.0 x 2.0 x 1.4 cm. Normal blood flow. LEFT OVARY: Measures 4.0 x 2.8 x 3.8 cm. Normal echogenicity. Normal blood flow. OTHER: Moderate amount of complex fluid in the pelvis. There is a large complex cyst in the left adnexa is noted to measure 6.8 x 4.0 x 7.1 cm. IMPRESSION: Interval enlargement of the complex left adnexal cyst. Correlate clinically to exclude tubo-ovarian abscess. Moderate amount of complex free fluid Electronically signed by Ebony Delgado 10-01-2025 6:58 PM
[2025-10-01] MEDS: MoRPHine SULFATE 4 MG/ML 1 ML CARP\\VIAL IV STA (19:14)
[2025-10-01] MEDS: cefTRIAXone SODIUM 2,000 MG/50 ML BAG IV STA (19:33)
[2025-10-01] MEDS: metroNIDAZOLE 500 MG/100 ML BAG IV STA (19:33)
[2025-10-01] MEDS: DOXYCYCLINE HYCLATE 100 MG in DEXTROSE 5% MINI-B 100 ML IV STA (20:21)
--- NOTE | 2025-10-01 20:52 | OB/GYN Consultation ---
Date of Consultation October 01, 2025 Assessment & Plan (1) Left pyosalpinx: Plan Pelvic pain in the setting of likely R ovulation between 09/27 and 10/01, given dominant follicle seen last time on CD14 and collapsed cyst seen now on CD19. However her pain is on the LEFT, making the ovulation or a hemorrhagic CL less likely to be the cause of her pain. Importantly her current HCG is negative and ectopic is therefore not expected to be on the differential here. She also does still have her appendix but it was well seen and apparently normal on imaging. She has apparently had a chronic hydrosalpinx on the LEFT, and until now it has been felt to be stable / not a source of acute pain. However, the appearance of that tube on imaging is notably changed in the last few days concurrent with onset of pain. Her WBC has dropped below normal currently, which is also a significant change. I am concerned that her abdominal pain, tachycardia, and exam findings represent interim development of infection in that tube with inflammatory fluid in the pelvis. While it's not as common to develop TOA/pyosalpinx without GC/CT or immunocompromise, it can happen, and the couple have had unprotected sex while trying to conceive. GC/CT culture was also to be sent via the ER tonight. She has noted a concurrent abnormal change in her vaginal discharge. We discussed the option of diagnostic laparoscopy tonight with possible removal of L tube and/or ovary, versus the option of admission for IV antibiotics with broad coverage for TOA/PID and pain management. There is also the possibility of using IR to drain a collection if it is felt to be surgically inaccessible. She is aware that even if admission tonight for medical management is successful in cooling-off the current process, it is still possible she will either need to urgently undergo L salpingectomy vs adnexectomy in the coming days. It is also possible that she will stabilize without surgery for now, but eventually want to elect L salpingectomy in order to improve her fertility. She and her mention several times tonight during our visit that they are wondering whether her chronic L hydrosalpinx could affect her fertility or increase her chance of miscarrying, and we discussed this. She will be admitted for medical mgmt and serial labs/imaging for now. History of Present Illness Reason for Consultation: LLQ pain History of Present Illness 30yo seen in ER this evening for LLQ pain. Relevant history is summarized: 2019: 1st trimester SAB. Noted 5cm complex L adnexal process at that time, ?hydrosalpinx Notes show discussion of elective ovarian cystectomy which was delayed 2/2 covid pandemic, and an interim episode of medically-managed mild appendicitis. Plan was to remove appx if surgery for ovarian cyst ever proceeded, but it does not appear that occurred. 2019: CT scan showing likely L hydrosalpinx 2020: 1' CS for term breech infant, no documentation of tubes/ovaries appearance during OR 2021: RCS for term , tubes/ovaries documented as seen and normal in op report 2023: ectopic in R adnexa treated successfully with MTX; L hy drosalpinx again seen Sep 27 2025: Patient seen in ER for RLQ pain. She was CD14 at that time and had a 1.9cm R dominant follicle. WBC 9.5, Hgb 12.5, Plt 174, Managed as outpatient for pain with NSAID. Oct 01 2025: Patient returns to ER. Had sudden onset LEFT LQ pain earlier this afternoon, initially with nausea, though pain decreased and nausea resolved around the time she presented to ER. She denies fever/chills. Does feel there has been a vaginal discharge this week, brown on Friday and yellowish since, without odor or pain. She is trying to become and is not on con traception. She is sexually active with who is in the room with her today. They both deny any chance of exposure to STD. She does not know of any immunocompromising factors that she might have. Allergies Allergy/AdvReac Type Severity Reaction Status Date / Time No Known Allergies Allergy Mild Verified 06/16/24 13:21 Patient History Medical History Varicella vaccination Pre-eclampsia hx of Spontaneous hx Surgical History S/P section x2 History of wisdom tooth extraction Status post surgery Hymenectomy 2007 Family History Grandmother (Paternal) Breast cancer Diabetes Brother Cancer lymphoma Grandmother (Maternal) Heart disease Father Hypertension Denies family history of Ovarian cancer Colorectal cancer Social History Smoking Status: Never smoker Second Hand Exposure: No; Do You Dip or Chew Tobacco: No; Hx Alcohol Use: No Hx Substance Use: No Preferred Language: Italian Communication Ability: Effective Power Transformer Inspector Required: No Beliefs That Will Affect Care: None marital status: marital status details: Av Zamora (30) [phone] Current Living Situation: Spouse and Family Current Living Situation Comment: lives with spouse, 2 children, dog current occupational status: employed 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 When laid flat using gurney, pain increases in the abdomen. Cor: Tachy to 120s during our visit, normal rhythm Lungs: No resp distress, speech normal kia and volume Abd: ?mild distention (pt feels subjectively this is present), but soft, and diffusely TTP. She does c/o rebound pain. No masses or hernias appreciated. Pelvic: deferred at this time MSK: moving all four limbs, no edema Results & Data Vital Signs (Past 12 Hours) Vital Signs Temp Pulse Pulse Resp BP BP Pulse Ox 10/01/25 18:22 112 H 18 113/70 99 10/01/25 16:46 99 10/01/25 16:35 125 H 22 100 10/01/25 16:24 99.3 F 122 H 18 133/88 98 O2 Del Method 10/01/25 18:22 Room Air 10/01/25 16:46 Room Air 10/01/25 16:35 Room Air 10/01/25 16:24 Room Air Laboratory Results Laboratory Results - last 24 hr 10/01/25 10/01/25 16:45 20:24 WBC 4.44 L RBC 3.88 L Hgb 12.1 Hct 33.8 L MCV 87.1 MCH 31.2 MCHC 35.8 RDW Std Deviation 37.8 RDW Coeff of Trinity 11.8 Plt Count 209 MPV 10.0 Immature Gran % (Auto) 0.2 Neut % (Auto) 75.5 Lymph % (Auto) 16.9 [place] % (Auto) 7.0 Eos % (Auto) 0.2 Baso % (Auto) 0.2 Neut # (Auto) 3.35 Lymph # (Auto) 0.75 L [place] # (Auto) 0.31 Eos # (Auto) 0.01 Baso # (Auto) 0.01 Immature Gran # (Auto) 0.01 Sodium 135 L Potassium 3.4 L Chloride 101 Carbon Dioxide 25 Anion Gap 9 BUN 9 Creatinine 0.58 L Est Cr Clr Drug Dosing 126.5 eGFR 124.00 BUN/Creatinine Ratio 15.5 Glucose 111 H Calcium 8.9 Total Bilirubin 0.7 AST 10 L ALT 9 Alkaline Phosphatase 46 Total Protein 7.1 Albumin 3.8 Globulin 3.3 Albumin/Globulin Ratio 1.2 Lipase 13 HCG, Qual Negative Urine Color Pending Urine Appearance Pending Urine pH Pending Ur Specific [place] Pending Urine Protein Pending Urine Glucose (UA) Pending Urine Ketones Pending Urine Blood Pending Urine Nitrite Pending Urine Bilirubin Pending Urine Urobilinogen Pending Ur Leukocyte Esterase Pending Urine Comment Pending C.trachomatis RNA Pending N.gonorrhoeae RNA Pending T.vaginalis (Amp Det) Pending Diagnostic Findings Imaging copied from report, [facility] reading: UTERUS: Measures 9.7 x 4.6 x 5.7 cm. Heterogeneous echotexture. No discrete fibroids. The endometrial stripe measure 8 mm. Normal echogenicity. RIGHT OVARY: Measures 4.2 x 2.9 x 3.7 cm. Complex cyst measures 2.0 x 2.0 x 1.4 cm. Normal blood flow. LEFT OVARY: Measures 4.0 x 2.8 x 3.8 cm. Normal echogenicity. Normal blood flow. OTHER: Moderate amount of complex fluid in the pelvis. There is a large complex cyst in the left adnexa is noted to measure 6.8 x 4.0 x 7.1 cm. IMPRESSION: Interval enlargement of the complex left adnexal cyst. Correlate clinically to exclude tubo-ovarian abscess. NOTE: I have independently reviewed the images from [facility]'s ultrasound and do feel there is a L adnexal abnormality most consistent with a hydro vs pyosalpinx, with complex fluid and thickened [place]. This appears more complex and thick-walled than the prior US from several days ago. PG Care Time/CCT Total # of Minutes Spent Total Time Spent with Patient: Total time spent is greater than 50% in coordination of care (as documented) at patient's floor/unit and/or counseling patient: Coding Level of Care Code 49917 OFFICE CONSULT LVL Diagnoses Left pyosalpinx N70.93
[2025-10-01 20:54] LABS: Appearance Urine Clear (Clear); Bacteria Urine Automated None Seen (None Seen); Cast Urine Automated 0-2 /lpf (0-2); Epithelial Cell Urine Auto 0-2 /hpf (0-2); Glucose Urine UA Negative (Negative); RBC Urine Automated 0-2 /hpf (0-2); WBC Urine Automated 0-5 /hpf (0-5)
[2025-10-01] MEDS ORDERED: ACETAMINOPHEN 325 MG TAB PO PRN (22:08)
[2025-10-02] MEDS: LACTATED RINGER'S 1,000 ML IV SCH (01:16)
[2025-10-02] MEDS: KETOROLAC TROMETHAMINE 15 MG/ML VIAL IV ONE (04:42)
[2025-10-02 07:16] LABS: Hematocrit (blood only) 30.5 % (37.0-47.0); Hemoglobin 10.5 g/dL (12.0-16.0); Immature Granulocytes # (auto) 0.07 K/uL (0.01-0.20); Immature Granulocytes % (auto) 0.8 %; Mean Corpuscular Hemoglobin 30.1 pg (25.0-34.0); Mean Corpuscular Volume 87.4 fL (80.0-100.0); Platelet Count 183 K/uL (130-400); RDW Standard Deviation 39.0 fL (36.4-46.3); Red Blood Count 3.49 M/uL (4.20-5.40); White Blood Count 8.87 K/ul (4.8-10.8)
[2025-10-02 07:39] LABS: Alanine Aminotransferase 7.0 U/L (7-52); Albumin Globulin Ratio 1.3 (0.9-2); Albumin Level 3.5 gm/dl (3.4-5.0); Alkaline Phosphatase 38.0 U/L (34-104); Anion Gap 10.0 (3-11); Bilirubin,Total 0.7 mg/dl (0.2-1.0); Blood Urea Nitrogen 7.0 mg/dl (6-23); Calcium 8.4 mg/dl (8.6-10.3); Carbon Dioxide 25.0 mmol/L (21-32); Chloride 101.0 mmol/L (98-107); Creatinine Clr Calc Pharmacy 109.5 ml/min; Globulin 2.6 gm/dl (2.5-4.0); Glucose 123.0 mg/dl (70-99(Fasting)); Potassium 3.7 mmol/L (3.5-5.1); Sodium 136.0 mmol/L (136-145); Total Protein 6.1 gm/dl (6.0-8.3)
--- NOTE | 2025-10-02 08:15 | Progress Note ---
Date of Service October 02, 2025 Assessment & Plan (1) Left pyosalpinx: Plan: Patient has likely collapsing cyst / CL in R ovary, and has a collection in L adnexa that has apparently been present and appeared c/w hydrosalpinx on L for at least 5-6 years. However, change in appearance over the last week suggested increasing fluid complexity and wall thickness on the L, consistent with possible infection. Fever / tachycardia / concurrent c/o vaginal discharge / acute pelvic pain all noted on admission and contributing to suspicion that the chronic hydrosalpinx has become a pyosalpinx/TOA. However this diagnosis is unconfirmed, and additional possibilities such as ovarian complex cyst, torsion, etc are still possible. Patient has GC/CT/Trich pending but is believed to be low risk for STI by history and is immunocompetent. She is, however, having unprotected sex with as she is hoping to become . Clinically this morning she is perhaps minimally improved, and certainly not worse. We discussed awaiting repeat US to see how the findings in the L adnexa appear to have changed, and put that together with her labs and exam this morning to decide course. One option is to have dx laparoscopy today, with possible evacuation of TOA, possible salpingectomy, possible oophorectomy. Another is to begin diet and transition to PO antibiotic and pain mgmt, hoping she will be stable to complete outpatient course of care and have nonemergent minimally-invasive L salpingectomy in the near future. Will update once new imaging is available. Admission and Anticipated Discharge Date Admission Date: October 01, 2025 Subjective 30yo non sexually-active female (CD20, not contracepting/TTC, neg HCG) admitted with pelvic pain, vaginal discharge x1 week, left adnexal collection most c/w hydrosalpinx vs pyosalpinx/TOA, WBC 4.4 and Temp 100.4. She has been managed with IV and PO pain medication, triple antibiotic (ceftriax/doxy/flagyl started last night, next doses due this AM) and NPO status for possible OR today. She has been afebrile since admission, however has received NSAID during this stay. Overnight she was noted to fall asleep at times, but when woken for vitals she would note pain and request medication for that. When I arrived in her room this AM she was sitting up in bed and awake, a clean/empty emesis bag on her lap, with asleep at bedside. This morning she feels slightly improved but still in significant discomfort. There is mild nausea but no emesis. Physical Exam Physical Exam: Sitting upright, NAD. Appears more uncomfortable during repositioning to flat / supine. Constitutional: WD/WN, vitals as above Eyes: PERRL, conjunctivae normal, anicteric sclerae Neck: supple Respiratory: normal respiratory effort and able to speak in complete sentences; no respiratory distress Cardiovascular: no pedal edema, not wearing SCDs. Gastrointestinal (Abdomen): Soft Slightly less distended-appearing than yesterday TTP globally Some voluntary guarding, pt can relax when asked Less rebound than in ER yesterday, and less consistent; varies with and without distraction in upper and lower quadrants. Skin: no rashes, warm and dry Psychiatric: A+Ox3, euthymic affect Results & Data Vital Signs (Past 12 Hours) Vital Signs Temp Pulse Resp BP Pulse Ox O2 Del Method 10/02/25 04:09 99.9 F H 112 H 20 113/64 98 Room Air 10/01/25 22:55 99.1 F 98 H 18 102/63 98 Room Air 10/01/25 22:20 99.5 F 104 H 18 108/65 98 Room Air 10/01/25 21:41 100.4 F H 113 H 18 102/65 95 Room Air 10/01/25 20:45 112 H 16 105/68 99 Room Air Laboratory Results Laboratory Results - last 24 hr 10/01/25 10/01/25 10/02/25 16:45 20:24 06:38 WBC 4.44 L 8.87 RBC 3.88 L 3.49 L Hgb 12.1 10.5 L Hct 33.8 L 30.5 L MCV 87.1 87.4 MCH 31.2 30.1 MCHC 35.8 34.4 RDW Std Deviation 37.8 39.0 RDW Coeff of Trinity 11.8 12.1 Plt Count 209 183 MPV 10.0 10.0 Immature Gran % (Auto) 0.2 0.8 Neut % (Auto) 75.5 89.7 Lymph % (Auto) 16.9 6.3 Newberry % (Auto) 7.0 2.7 Eos % (Auto) 0.2 0.0 Baso % (Auto) 0.2 0.5 Neut # (Auto) 3.35 7.96 H Lymph # (Auto) 0.75 L 0.56 L [place]berry # (Auto) 0.31 0.24 Eos # (Auto) 0.01 0.00 Baso # (Auto) 0.01 0.04 Immature Gran # (Auto) 0.01 0.07 Sodium 135 L 136 Potassium 3.4 L 3.7 Chloride 101 101 Carbon Dioxide 25 25 Anion Gap 9 10 BUN 9 7 Creatinine 0.58 L 0.67 Est Cr Clr Drug Dosing 126.5 109.5 eGFR 124.00 119.76 BUN/Creatinine Ratio 15.5 10.4 Glucose 111 H 123 H Calcium 8.9 8.4 L Total Bilirubin 0.7 0.7 AST 10 L 8 L ALT 9 7 Alkaline Phosphatase 46 38 Total Protein 7.1 6.1 Albumin 3.8 3.5 Globulin 3.3 2.6 Albumin/Globulin Ratio 1.2 1.3 Lipase 13 HCG, Qual Negative Urine Color Yellow Urine Appearance Clear Urine pH 5.5 Ur Specific Mio 1.018 Urine Protein Trace H Urine Glucose (UA) Negative Urine Ketones 3+ H Urine Blood Trace H Urine Nitrite Negative Urine Bilirubin Negative Urine Urobilinogen Negative Ur Leukocyte Esterase 1+ H Urine WBC (Auto) 0-5 Urine RBC (Auto) 0-2 U Hyaline Cast (Auto) 0-2 U Epithel Cells (Auto) 0-2 Urine Bacteria (Auto) None Seen Urine Comment C.trachomatis RNA Pending N.gonorrhoeae RNA Pending T.vaginalis (Amp Det) Pending PG Care Time/CCT Total # of Minutes Spent Total Time Spent with Patient: Total time spent is greater than 50% in coordination of care (as documented) at patient's floor/unit and/or counseling patient: Coding Level of Care Code 66069 SUB INP/OBS CARE 235MIN Diagnoses Left pyosalpinx N70.93
[2025-10-02] MEDS: metroNIDAZOLE 500 MG/100 ML BAG IV SCH (09:46)
[2025-10-02] MEDS: ONDANSETRON INJ 2 MG/ML 2 ML VIAL IV PRN (09:46)
--- NOTE | 2025-10-02 09:47 | Ultrasound Report ---
EXAM: US Pelvis Transabdominal and Transvaginal Complete INDICATION: Pain and vaginal bleeding. TECHNIQUE: Real-time complete transabdominal and transvaginal pelvic ultrasound with image documentation. Transvaginal imaging was used for better evaluation of the endometrium and adnexa. COMPARISON: 10/01/2025 FINDINGS: Uterus/cervix: 10.4 x 4.3 x 5.8 cm. There is a small amount of fluid in the endometrial canal. Double stripe thickness is 8 mm. No myometrial mass. Right ovary: 4.1 x 3.1 x 3.8 cm. Stable bilateral adnexal complex fluid possibly hemorrhage. Normal arterial and venous blood flow. Left ovary: 3.8 x 2.5 x 2.9 cm stable complex left paraovarian or exophytic ovarian cyst with markedly complex contents measuring 7.6 x 4.2 x 5.3 cm. Free fluid: Small amount of free fluid in Morison's pouch. Bladder: No acute abnormality noted. Wall is normal thickness for degree of distention. IMPRESSION: 1. No ovarian torsion. 2. Stable complex left ovarian or adnexal cyst. Pyosalpinx also considered. Correlate clinically for tubo-ovarian abscess. 3. Grossly stable hemoperitoneum with new fluid in Morison's pouch which may reflect redistribution. Electronically signed by Yadira Sarmiento 10-02-2025 09:46 AM
[2025-10-02] MEDS: DOXYCYCLINE HYCLATE 100 MG in DEXTROSE 5% MINI-B 100 ML IV SCH (09:51)
[2025-10-02] MEDS ORDERED: PHENYLEPHRINE HCL 10 MG/ML VIAL ONE (10:05)
[2025-10-02] MEDS ORDERED: MIDAZOLAM HCL 1 MG/ML 2ML VIAL ONE (10:07)
[2025-10-02] MEDS ORDERED: ONDANSETRON INJ 2 MG/ML 2 ML VIAL ONE (10:08)
[2025-10-02] MEDS ORDERED: ROCURONIUM BROMIDE 10 MG/ML 5 ML VIAL IV ONE ×2 (10:08→12:12)
[2025-10-02] MEDS ORDERED: LIDOCAINE 2% 2 ML VIAL/AMP(20MG/ML) INFIL ONE (10:08)
[2025-10-02] MEDS ORDERED: PROPOFOL IV EMULSION 10 MG/ML 20 ML VIAL IV ONE ×2 (10:08→10:26)
[2025-10-02] MEDS ORDERED: METOCLOPRAMIDE HCL INJ 5 MG/ML 2 ML VIAL ONE (10:09)
[2025-10-02] MEDS ORDERED: DEXAMETHASONE SOD INJ 4 MG/ML VIAL ONE (10:09)
--- NOTE | 2025-10-02 10:11 | Progress Note ---
Date of Service October 02, 2025 Assessment & Plan (1) Abdominal pain, LLQ (left lower quadrant): Plan: Ongoing pelvic pain. Concern for either TOA or hemorrhagic process in L adnexa. Diagnostically unclear picture; WBC normal today but suppressed on admission with fever present. Hgb dropped today 12.1 --> 10.5 but plts also dropped and volume resuscitation was given, so unclear how much loss vs hemodilution. Not obvious why there would be a bleed/rupture occurring in this patient at this time, other than an ovarian functional source, yet the issue on imaging certainly appears to be the left tube. I am aware that the menstrual history and the HCG make ectopic unexpected here, but given the question of whether this tube is actually full of blood rather than pus, and the onset of unexpected vaginal bleeding, I am requesting a repeat HCG this time with quant and patient is aware/agreeable. I also discussed with her the consent form for diagnostic laparoscopy, possible salpingectomy, possible oophorectomy. We reviewed the lack of certainty about what will be identified during surgery, and what will be indicated for removal, though at this time my working expectation is that she'll likely lose the L fallopian tube. We reviewed the impacts this can have on fertility and menopausal entry age. She noted that although they are trying for she and her discussed they are happy to have two healthy children and accept whatever needs to be removed today in order to protect her well being, including removal of structures that will impact whether or how she can get in the future. She voiced consent to have Patricio, her , discuss care with me intraoperatively if unexpected findings or decisions arise. Nurse was in the room during these discussions, but was not present at this time. Admission and Anticipated Discharge Date Admission Date: October 01, 2025 Subjective Patient has returned from ultrasound. Unchanged level of discomfort. Sitting upright in bed in room 405. She notes she has begun experiencing dark vaginal bleeding, which is not anticipated based on her menstrual cycle timing. Results & Data Vital Signs (Past 12 Hours) Vital Signs Temp Pulse Resp BP Pulse Ox O2 Del Method 10/02/25 04:09 99.9 F H 112 H 20 113/64 98 Room Air 10/01/25 22:55 99.1 F 98 H 18 102/63 98 Room Air 10/01/25 22:20 99.5 F 104 H 18 108/65 98 Room Air Diagnostic Findings Radiology read pending when I first reviewed this morning's ultrasound images. US Linter Tender also reached out to me during scan to note subjective impression of worsened amount of complex free fluid, now able to see some in Mathews's pouch, and ?larger L fallopian tube / collection. She felt the fluid appeared suggestive of blood per her [employer]. My impression is normal size uterus with small fluid in endometrial canal, both R and L ovaries visualized and appear functional but normal, and both ovaries with arterial flow making ovarian torsion unlikely. L posterior/adnexal complex fluid collection that continues to appear to me as being in the fallopian tube, given multiple cross-sections and crenellated edge appearance, with question of new levels in fluid, and subjectively slightly more free fluid than yesterday. I cannot discern between heme vs pus vs other for the nature of the complex fluid, nor am I certain whether there is more fluid vs redistribution of previously-seen fluid. Radiology read later returned essentially agreeing with above; stable / redistributed fluid and essentially stable L adnexal collection of complex which is indeterminate as to tube vs ovary vs paraovarian, and indeterminate as to hematosalpinx vs pyosalpinx if in the tube. PG Care Time/CCT Total # of Minutes Spent Total Time Spent with Patient: Total time spent is greater than 50% in coordination of care (as documented) at patient's floor/unit and/or counseling patient: Coding Level of Care Code 52222 SUB INP/OBS CARE 2/35MIN Diagnoses Abdominal pain, LLQ (left lower quadrant) R10.32
[2025-10-02] MEDS ORDERED: ACETAMINOPHEN 1000 MG/100 ML IV IV ONE (10:15)
[2025-10-02] MEDS ORDERED: SCOPOLAMINE 1 MG/72 HR TDSY PATCH TD ONE (10:24)
[2025-10-02] MEDS ORDERED: ATROPINE SULFATE 0.1 MG/ML 10ML SYR IV PRN (10:57)
[2025-10-02] MEDS ORDERED: PROMETHAZINE HCL 6.25 MG in SODIUM CHLORIDE 0.9% 50 ML IV PRN (10:57)
[2025-10-02] MEDS ORDERED: ONDANSETRON INJ 2 MG/ML 2 ML VIAL IV PRN (10:57)
--- NOTE | 2025-10-02 10:57 | Anesthesiology Consultation ---
Date of Service October 02, 2025 Assessment & Plan Chart Review Chart Review: Acceptable Risk for Surgery and Patient NOT seen in Pre Admission Testing Consults Requested none ASA ASA1 Proposed Anesthesia Anesthesia Type: General Risk / Benefits Reviewed With: PT / POA / Parent / Guardian, Accepts Plan and Informed Consent Obtained History Surgery Operation Date: 10/02/25 10:30 Proposed Procedures p Robotic Total Laparos Hysterectomy - Bethany Cheng MD Height/Weight Height: 5 ft 5 in Weight: 65 kg Allergies Allergy/AdvReac Type Severity Reaction Status Date / Time No Known Allergies Allergy Mild Verified 06/16/24 13:21 Medications Active Medications Generic Name Dose Route Start Last Admin Trade Name Freq PRN Reason Stop Dose Admin Doxycycline Hyclate 100 mg/ 100 mls @ 50 mls/hr 10/02/25 09:00 10/02/25 09:51 Dextrose IV 10/12/25 08:59 50 mls/hr Q12H MATTHEW Administration Metronidazole 500 mg in 100 mls @ 100 mls/hr 10/02/25 09:00 10/02/25 09:46 Flagyl IV 10/12/25 08:59 100 mls/hr Q12H MATTHEW Administration Protocol Lactated Ringer's 1,000 mls @ 125 mls/hr 10/01/25 22:30 10/02/25 09:46 Lr IV 10/04/25 22:29 125 mls/hr .Q8H MATTHEW Administration Ondansetron HCl 4 mg 10/01/25 22:08 10/02/25 09:46 Ondansetron Inj 2 Mg/Ml 2 Ml Vial IV 10/31/25 22:07 4 mg Q6H PRN Administration Nausea And Vomiting NPO Date Last Intake of Fluids: 10/01/25 Time Last Intake of Fluids: 01:00 Last Intake of Fluids Comment: Sips with pills Date Last Intake of Solids: 10/01/25 Time Last Intake of Solids: 22:00 Past Medical History Medical History Varicella vaccination Pre-eclampsia hx of Spontaneous hx Exercise / Class Metabolic Activity II 4-5 Yardwork/Stairs/Walk up hill Past Family History Family History Grandmother (Paternal) Breast cancer Diabetes Brother Cancer lymphoma Grandmother (Maternal) Heart disease Father Hypertension Denies family history of Ovarian cancer Colorectal cancer Past Surgical History Surgical History S/P section x2 History of wisdom tooth extraction Status post surgery Hymenectomy 2008 Past Anesthesia History No Hx of Anesthesia Complications and No Family Hx of Anesthesia Complications History of PONV No Hx of PONV and No Hx of Motion Sickness Social History Smoking Status: Never smoker Do You Dip or Chew Tobacco: No Hx Alcohol Use: Yes Alcohol type: beer alcohol intake frequency: a few times a month Alcohol Intake Frequency Comment: weekends Hx Substance Use: No substance use type: does not use Physical Exam Vital Signs Last Vital Signs Temp 37.9 C H 10/02/25 10:00 Pulse 118 H 10/02/25 10:00 Resp 16 10/02/25 10:00 BP 118/76 10/02/25 10:00 Pulse Ox 98 10/02/25 10:00 O2 Del Method Room Air 10/02/25 10:00 ENMT Mouth: no dentition abnormality Thyromental Distance: > or= 3.5 Finger Breadths Mallampati Class: II Neck normal visual inspection Respiratory normal respiratory effort Auscultation: lungs clear to auscultation bilaterally Cardiovascular Rate/Rhythm: regular rate and regular rhythm Psychiatric Orientation: alert Testing Laboratory Results 10/02/25 06:38 10/02/25 06:38 Urine Color Yellow 10/01/25 20:24 Urine Appearance Clear (Clear) 10/01/25 20:24 Urine pH 5.5 (4.5-7.5) 10/01/25 20:24 Ur Specific [place] 1.018 (1.000-1.030) 10/01/25 20:24 Urine Protein Trace (Negative) H 10/01/25 20:24 Urine Glucose (UA) Negative (Negative) 10/01/25 20:24 Urine Ketones 3+ (Negative) H 10/01/25 20:24 Urine Nitrite Negative (Negative) 10/01/25 20:24 Ur Leukocyte Esterase 1+ (Negative) H 10/01/25 20:24 Urine WBC (Auto) 0-5 /hpf (0-5) 10/01/25 20:24 Urine RBC (Auto) 0-2 /hpf (0-2) 10/01/25 20:24 U Hyaline Cast (Auto) 0-2 /lpf (0-2) 10/01/25 20:24 U Epithel Cells (Auto) 0-2 /hpf (0-2) 10/01/25 20:24 Urine Bacteria (Auto) None Seen (None Seen) 10/01/25 20:24 10/02/25 10:29 HCG, Quant Pending
[2025-10-02] MEDS ORDERED: ceFAZolin 330 MG/ML 1 GM VIAL ONE (11:24)
[2025-10-02] MEDS ORDERED: KETOROLAC 30 MG/ML VIAL ONE (12:21)
[2025-10-02] MEDS ORDERED: SUGAMMADEX SODIUM 200 MG/2 ML VIAL IV ONE (12:21)
[2025-10-02] MEDS: HYDROmorphone INJ 2 MG/ML SYR/VIAL IV PRN (13:13)
--- NOTE | 2025-10-02 13:36 | Operative Report ---
PG Post Operative Report Pre & Post Diagnosis Operation Date: 10/02/25 10:30 Pre-Op Diagnosis: Left adnexal complex cyst vs pyosalpinx vs hematosalpinx Post-Op Diagnosis: Left pyosalpinx / Tubo-ovarian abscess I identified the patient and participated in the time-out.: Yes Procedure Operation Date: 10/02/25 10:30 Actual Procedures Robotic Diagnostic Laparoscopy, Left Salpingo-Oophorectomy, Lysis of adhesions Surgeon Bethany Cheng MD [employer] Director None Estimated Blood Loss 10 Findings Consistent with Post-Op Diagnosis Specimens Left fallopian tube and ovary Anesthesia Type General Complications none Disposition Accompanied Patient To Recovery: Yes Disposition: Recovery Room Description of Procedure The patient was placed on the table in lithotomy position and prepped/draped in standard sterile fashion. A hard time out was taken prior to proceeding. [place] was placed for clear yellow urine. Weighted and Wick specula were used to visualize the cervix which was grasped on its anterior lip with a tenaculum and a Moya's cannula was placed in the cervical os. Optical entry was made at the umbilicus with a robotic port, which was accomplished without complications. Immediately, purulent fluid was visible surrounding the abdominal organs. Under direct visualization, the L port was carefully placed, which then allowed suction-irrigation to be used to evacuate the bulk of the purulent fluid pooled in the pelvis. Culture of this fluid was also collected. The abdomen was insufflated, and the patient was placed in Trendelenburg. Under direct visualization, right port was placed. The robot was docked and the main portion of surgery began. An omental adhesion to the anterior abdominal wall was explored and found not to contain bowel; this was lysed sharply away from the abdominal wall to obtain clear access to the pelvis. Survey of the pelvic organs revealed normal R tube and normal R ovary, with R tubal fimbria visualized and apparently normal. The uterus was normal-appearing. The left tube appeared relatively normal near the cornua but became progressively dilated distally, and was noted to be densely adherent to the posterior uterus and rectosigmoid, obscuring the cul-de-sac. Lysis of adhesions was done in a blunt manner, peeling mostly acute and filmy adhesions clear, lysing some chronic/thicker adhesions with brief electrocautery and as much as possible cold dissection. The cul-de-sac gradually became visible, and a robotic suction-irrigation tool was used to evacuate blood and pus as they were revealed. A tiny hole in the left fallopian tube began to squirt a stream of white-livingston pus during this dissection and photograph was captured showing this stream. Suction was used to quickly evacuate this fluid from the cul-de-sac. A bipolar cautery was used to seal the cornual end of the fallopian tube, hoping to prevent backflow of inflammatory material into the uterus to the extent possible. The tube was elevated and an attempt was made to trace it to its distal end. Identifying fimbriae was difficult, as was identifying the ovary itself, due to extreme distortion and inflammation. The utero-ovarian ligament and IP ligament were able to be clearly identified, however, and the ureter was seen peristalsing transperitoneally. The decision was made to remove the L tube and ovary en-bloc. The IP ligament was isolated by opening the broad ligament and creating a window as near to the tube and ovary as possible, then the IP was cauterized with bipolar energy and transected. The mesosalpinx was carefully dissected as close to the tube as possible. Finally, the utero-ovarian ligament was ligated and divided freeing the tube and ovary. Robotic suction-irrigation was used to wash the cul-de-sac and L pelvic sidewall, and good hemostasis at all working sites was seen. The R trocar was used to introduce and endocatch bag which was used to capture the specimen which was parked in the R trocar site. The robot was then undocked. Retrieval of the specimen required enlarging the R skin incision to approximately 3cm as well as enlarging the fascial incision in that location to approximately the same size. In this process the bag was partially disrupted. Although there was minimal if any spillage of tissue or fluid back into the abdomen, there was exposure of the specimen to the R port incision edges during extraction. A final examination of the pelvis was undertaken and suction- irrigation was used to rinse the area. The patient was taken out of trendelenberg, partially into reverse, and additional fluid that returned to the pelvis was collected with suction-irrigation as well. A final survey of the surgical sites revealed good hemostasis. The abdomen was deflated and all instruments were removed. A UR-6 was used to close the fascia on the R trocar site in running locked fashion under direct visualization, the angles being elevated with Sita clamps and the layers of the fascia being visible directly during suturing. A chromic suture was used to reapproximate the subcutaneous layer, and 4-0 monocryl was used in subcuticular fashion to close all 3 sites. Dermabond was applied to all incisions. The fole y and Moya's cannula were removed, and the patient was transferred to the recovery room in good condition. The surgical procedure was reviewed in depth with the patient's , including review of intraoperative photographs, immediately after the case. All questions answered to stated satisfaction. I attest to the content of the Intraoperative Record and any orders documented therein. Any exceptions are noted below. LAB AS[facility] Major Procedure Codes Laparotomy/Laparoscopic 61121 [facility] SO part/total 81280 [facility] w/RAFAEL LAB [facility] Minor Procedure Codes Laparoscopy(ic) 61249 [facility] SO part/total 40746 [facility] w/RAFAEL
--- NOTE | 2025-10-02 14:02 | Anesthesiology Progress Note ---
Date of Service October 02, 2025 Anesthesia Post Procedure Vital Signs Vital Signs: Temp Pulse Pulse Pulse Resp BP BP 10/02/25 13:45 37.3 C 102 H 16 123/79 10/02/25 13:35 98 H 15 121/75 10/02/25 13:25 94 H 17 118/71 10/02/25 13:15 104 H 14 118/68 10/02/25 13:09 36.8 C 106 H 17 121/70 10/02/25 10:00 37.9 C H 118 H 16 118/76 10/02/25 04:09 37.7 C H 112 H 20 113/64 10/01/25 22:55 37.3 C 98 H 18 102/63 10/01/25 22:20 37.5 C 104 H 18 108/65 10/01/25 21:41 38.0 C H 113 H 18 102/65 10/01/25 20:45 112 H 16 105/68 10/01/25 18:22 112 H 18 113/70 10/01/25 16:46 10/01/25 16:35 125 H 22 10/01/25 16:24 37.4 C 122 H 18 133/88 Pulse Ox O2 Del Method O2 Flow Rate 10/02/25 13:45 93 Room Air 10/02/25 13:35 94 Room Air 10/02/25 13:25 96 Room Air 10/02/25 13:15 100 Oxymask 2 10/02/25 13:09 100 Oxymask 2 10/02/25 10:00 98 Room Air 10/02/25 04:09 98 Room Air 10/01/25 22:55 98 Room Air 10/01/25 22:20 98 Room Air 10/01/25 21:41 95 Room Air 10/01/25 20:45 99 Room Air 10/01/25 18:22 99 Room Air 10/01/25 16:46 99 Room Air 10/01/25 16:35 100 Room Air 10/01/25 16:24 98 Room Air Pain Intensity Left Lower Pelvic: Pain Intensity: 4 Lower Abdomen: Pain Intensity: 4 Transfer of Care Handoff Completed per policy Notes Mental Status: alert / awake / arousable Patient Amnestic to Procedure: Yes Nausea / Vomiting: adequately controlled Pain: adequately controlled Airway Patency, RR, SpO2: stable & adequate BP & HR: stable & adequate Hydration State: stable & adequate Anesthetic Complications: no major complications apparent
[2025-10-02] MEDS: IBUPROFEN 600 MG TAB PO PRN (15:37)
[2025-10-02] MEDS: cefTRIAXone SODIUM 1,000 MG/50 ML BAG IV SCH (19:52)
[2025-10-02] MEDS ORDERED: cefTRIAXone SODIUM 1,000 MG/50 ML BAG IV SCH (21:00)
[2025-10-03 02:58] VITALS: PULSE 60
--- NOTE | 2025-10-03 06:05 | Obstetrical Progress Note ---
Date of Service October 03, 2025 Assessment & Plan (1) Left pyosalpinx: Plan: Left TOA excised, abdomen washout, doing much better. Transition to PO Abx and D/C today. (2) Acute pelvic inflammatory disease: (3) Abdominal pain, LLQ (left lower quadrant): Plan 30 y/o pod #1 s/p left salpingo-oophorectomy for management of worsening pain and vaginal bleeding in the setting of left pyosalpinx. CBC w/o leukocytosis. Patient HD and afebrile. Transition to abx treatment with cephalexin, doxycycline, and metronidazole. Will continue these for a total abx course of 14 days. Pain management with ibuprofen/tylenol prn Anticipate discharge home today with plans to f/u with Dr. Cheng within 1-2 weeks. Admission and Anticipated Discharge Date Admission Date: October 01, 2025 Subjective 30 y/o pod #1 s/p left salpingo-oophorectomy for management of worsening pain and vaginal bleeding in the setting of left pyosalpinx. Feeling well this morning, with minimal pain. Ambulating w/o concern. Tolerating PO. Hemodynamically stable and afebrile overnight. denies fevers/chills, chest pain, SOB, N/V/D. Review of Systems Review of Systems: as above. Physical Exam Physical Exam: General: patient resting comfortably, NAD, non-toxic in appearance, A&Ox4, answers questions appropriately. Skin: warm, dry, intact HEENT: NC/AT, anicteric sclera, conjunctiva without injection, moist mucus membranes. Heart: +S1/S2, regular, no m/r/g Lungs: equal air entry bilaterally, no rales/rhonchi/wheezes Abd: +BS, soft, NT/ND. Surgical sites C/D/I. Ext: warm, no clubbing/cyanosis or edema, Ulises's neg. Neuro: no focal neurological deficits Results & Data Vital Signs (Past 12 Hours) Vital Signs Temp Pulse Resp BP Pulse Ox O2 Del Method 10/03/25 02:57 36.7 C 60 16 105/61 98 Room Air 10/02/25 22:51 36.6 C 68 16 91/57 L 97 Room Air 10/02/25 19:50 Room Air 10/02/25 19:50 36.7 C 86 18 103/70 96 Room Air
[2025-10-03 06:22] LABS: Hematocrit (blood only) 28.1 % (37.0-47.0); Hemoglobin 9.6 g/dL (12.0-16.0); Immature Granulocytes # (auto) 0.14 K/uL (0.01-0.20); Immature Granulocytes % (auto) 1.3 %; Mean Corpuscular Hemoglobin 29.9 pg (25.0-34.0); Mean Corpuscular Volume 87.5 fL (80.0-100.0); Platelet Count 161 K/uL (130-400); RDW Standard Deviation 39.2 fL (36.4-46.3); Red Blood Count 3.21 M/uL (4.20-5.40); White Blood Count 10.66 K/ul (4.8-10.8)
[2025-10-03 06:40] LABS: Alanine Aminotransferase 7.0 U/L (7-52); Albumin Globulin Ratio 1.2 (0.9-2); Albumin Level 3.2 gm/dl (3.4-5.0); Alkaline Phosphatase 40.0 U/L (34-104); Anion Gap 7.0 (3-11); Bilirubin,Total 0.3 mg/dl (0.2-1.0); Blood Urea Nitrogen 11.0 mg/dl (6-23); Calcium 8.3 mg/dl (8.6-10.3); Carbon Dioxide 27.0 mmol/L (21-32); Chloride 101.0 mmol/L (98-107); Creatinine Clr Calc Pharmacy 112.8 ml/min; Globulin 2.7 gm/dl (2.5-4.0); Glucose 136.0 mg/dl (70-99(Fasting)); Potassium 3.8 mmol/L (3.5-5.1); Sodium 135.0 mmol/L (136-145); Total Protein 5.9 gm/dl (6.0-8.3)
[2025-10-03] MEDS: FAMOTIDINE/PF 20 MG/2 ML VIAL IV ONE (07:33)
[2025-10-03 08:57] VITALS: BP 107/64; RESP 18; TEMP 99; O2SAT 100
[2025-10-03] MEDS: DOXYCYCLINE HYCLATE 100 MG CAP PO SCH (09:03)
[2025-10-03] MEDS: metroNIDAZOLE 500 MG TAB PO SCH (09:03)
[2025-10-04 12:46] LABS: Chlam trach RNA(Genit,Ureth,Ur Not Detected (NotDetected); GC(Neis gon)RNA(Genit,Ureth,Ur Not Detected (NotDetected)
== END 2025-10-03 10:30 | disposition home or self-care (01) | DRG 743 ==
LOC: ED 16:23 → 4E1 20:54